=== PATIENT | male | born 1975 ===

== ENCOUNTER 2022-08-06 15:20 | Outpatient (REF) | payer BC, SELFPAY ==
[2022-08-06 16:50] LABS: Abs Immature Grans 0.01 10^3/uL (0.0-0.06); Absolute Basophil Count 0.06 10^3/uL (0.0-0.2); Absolute Eosinophil Count 0.16 10^3/uL (0.0-0.7); Absolute Monocyte Count 0.45 10^3/uL (0.1-0.8); Absolute Neutrophil Count 3.51 10^3/uL (1.2-6.7); Basophils % 1.1; HCT 47.9 % (40.0-50.0); HGB 16.4 g/dL (13.5-17.5); Immature Grans % 0.2; Lymphocytes % 20.8; MCH 31.2 pg (27.0-33.0); MCHC 34.2 % (32.0-36.0); MCV 91 fL (80-95); MPV 11.5 fL (8.0-11.0); Monocytes % 8.5; Neutrophils % 66.4; Platelet Count 224 10^3/uL (130-400); RBC 5.25 10^6/uL (4.36-5.78); RDW 12.3 % (11.8-14.1); RDW-SD 41.3 fL; WBC 5.29 10^3/uL (4.4-10.8)
[2022-08-06 23:11] LABS: ALT 41 U/L (16-63); AST 29 U/L (15-37); Albumin 4.2 g/dL (3.4-5.0); Alkaline Phosphatase 56 U/L (46-116); Anion Gap 15.5 mmol/L (3-11); BUN 12 mg/dL (7-18); Bilirubin, Total 0.6 mg/dL (0.2-1.0); CO2 20.5 mmol/L (21.0-32.0); CREATININE 1.1 mg/dL (0.70-1.30); Calcium 9.3 mg/dL (8.5-10.1); Calculated LDL 117 mg/dL (<100); Chloride 103 mmol/L (98-107); Cholesterol 193 mg/dL (<200); Estimated GFR 84.37 (mL/min/1.73m2); Glucose 73 mg/dL (74-106); HDL Cholesterol 59 mg/dL (40-60); Potassium 4.2 mmol/L (3.5-5.1); Sodium 139 mmol/L (136-145); Total Protein 7.5 g/dL (6.4-8.2); Triglyceride 85 mg/dL (<150)
[2022-08-07 18:17] LABS: PSA, Screening 0.3 ng/mL (<=2.5)
== END 2022-08-06 15:21 | disposition home or self-care (01) ==
LOC: NCHCN 15:20
PROVIDERS: PCP Nurse Practitioner Family; Visit Provider Nurse Practitioner Family
DX: Z00.00 Encounter for general adult medical examination without abnormal findings (principal); Z13.220 Encounter for screening for lipoid disorders; Z13.228 Encounter for screening for other metabolic disorders; Z12.5 Encounter for screening for malignant neoplasm of prostate; Z80.42 Family history of malignant neoplasm of prostate; Z13.0 Encounter for screening for diseases of the blood and blood-forming organs and certain disorders involving the immune mechanism
CPT/HCPCS: 80053; 80061; 84153; 85025

== ENCOUNTER 2023-04-03 16:16 | Outpatient (REF) | payer OTHER, SELFPAY ==
[2023-04-03 17:00] LABS: Abs Immature Grans 0.02 10^3/uL (0.0-0.06); Absolute Basophil Count 0.05 10^3/uL (0.0-0.2); Absolute Eosinophil Count 0.22 10^3/uL (0.0-0.7); Absolute Lymphocyte Count 0.88 10^3/uL (1.2-3.4); Absolute Neutrophil Count 2.88 10^3/uL (1.2-6.7); Basophils % 1.1; Eosinophils % 4.8; HCT 45.6 % (40.0-50.0); HGB 15.8 g/dL (13.5-17.5); Immature Grans % 0.4; Lymphocytes % 19.3; MCH 31.4 pg (27.0-33.0); MCHC 34.6 % (32.0-36.0); MCV 91 fL (80-95); MPV 11.5 fL (8.0-11.0); Neutrophils % 63.4; Platelet Count 187 10^3/uL (130-400); RBC 5.03 10^6/uL (4.36-5.78); RDW 12.3 % (11.8-14.1); RDW-SD 40.6 fL; WBC 4.55 10^3/uL (4.4-10.8)
[2023-04-03 17:57] LABS: ALT 33 U/L (16-63); AST 18 U/L (15-37); Alkaline Phosphatase 51 U/L (46-116); Anion Gap 9.5 mmol/L (3-11); BUN 14 mg/dL (7-18); Bilirubin, Total 0.6 mg/dL (0.2-1.0); CO2 26.5 mmol/L (21.0-32.0); CREATININE 1.1 mg/dL (0.70-1.30); Calcium 9.2 mg/dL (8.5-10.1); Chloride 106 mmol/L (98-107); Estimated GFR 83.84 (mL/min/1.73m2); Glucose 95 mg/dL (74-106); Potassium 4.3 mmol/L (3.5-5.1); Sodium 142 mmol/L (136-145); TSH (W/Ref FT4) 0.98 uIU/mL (0.36-3.74); Total Protein 7.1 g/dL (6.4-8.2); Vitamin B12 556 pg/mL (193-986)
[2023-04-10 09:04] LABS: Testosterone, Free 15.2 ng/dL (4.26-16.4); Testosterone, Total 602 ng/dL (240-950)
== END 2023-04-03 16:17 | disposition home or self-care (01) ==
LOC: NCHCN 16:16
PROVIDERS: PCP Nurse Practitioner Family; Visit Provider Nurse Practitioner Family
DX: R53.83 Other fatigue (principal); Z79.899 Other long term (current) drug therapy
CPT/HCPCS: 80053; 84402; 84403; 82607; 84443; 85025

== ENCOUNTER 2023-05-19 09:07 | Day surgery (SDC) | payer OTHER, SELFPAY ==
--- NOTE | 2023-05-18 11:58 | W.PM.DSUDISC ---
Date of service: 05/19/23 Time of Service: 11:00 Discharge Plan Disposition Patient Disposition: Home Condition: Good Discharge Details Reason For Visit: Screening colonoscopy Attending Provider: Omar Lozano Primary Care Provider: NIKOLAS BUENROSTRO Home Meds and New Rx's Prescriptions: Continued methylphenidate HCl 10 mg tablet 10 mg PO DAILY ocrelizumab 30 mg/mL solution 600 mg IV [id number] Discontinued bisacodyl [Dulcolax (bisacodyl)] 5 mg tablet,delayed release (DR/EC) 5 mg PO ONCE Qty: 4 0RF Rx Instructions: Take per colonoscopy instructions provided by ordering providers office polyethylene glycol 3350 17 gram/dose powder 17 g PO ONCE Qty: 238 0RF Rx Instructions: Take per colonoscopy instructions provided by ordering providers office Discharge Instructions Additional Instructions: Donnell, we were able to complete your colonoscopy today just fine. It was totally normal. I saw no signs of polyps, tumors, or any abnormalities. 1. If tolerated, consume a soft, low fiber diet for 1-2 days. 2. Do not drive, drink alcohol, operate machinery, make critical decisions, or do activities that require coordination or balance for 24 hours. 3. Because air was put into your colon during the procedure, expelling air from your rectum (passing gas or farting) is normal. 4. You may not have a bowel movement for 1-3 days because of the colonoscopy prep. This is normal. 5. Go directly to the emergency room if you notice any of the following: Develop chills (warm to touch), or if you have a thermometer and your temperature is above 101 Difficulty breathing or difficultly swallowing Persistent vomiting Severe abdominal pain, other than gas cramps Severe chest pain Black, tarry stools Any bleeding ? exceeding one tablespoon 6. Call your physician if the site where your intravenous was started becomes red, swollen, painful, and warm to touch. 7. Your physician has reviewed your pre-procedure medications. Please continue to take those medications as previously ordered. You will be given specific information/education regarding any changes to your medications before leaving. Activity:: Activity as Tolerated Diet:: As Tolerated Discharge Orders Discharge Orders: Discharge Order (Routine); Ordered 05/18/23 Ordered By: Omar Lozano DS: Diagnosis Discharge Diagnosis (1) Screening for colon cancer: Status: Acute Asessment and Plan: Negative screening colonoscopy
--- NOTE | 2023-05-18 12:01 | COLE_ITS ---
Date of service: 05/19/23 Time of Service: 11:00 Colonoscopy Report Date of procedure: 05/19/23 Pre-op diagnosis general: Screening colonoscopy Post-op diagnosis procedure note: other (Negative screening colonoscopy) Procedure: Colonoscopy Surgeon: Omar Lozano Anesthesia Type: General:No Airway Estimated blood loss (mL): 0 Pathology: none sent Complications: None Disposition: same day Indications: Donnell is a 48-year-old male who is here for consider screening colonoscopy Prep: Miralax/Dulcolax Procedure Start Time: 10:44 Procedure End Time: 10:55 Retraction Time: 8 Findings: Negative screening colonoscopy Procedure Description: After the induction of monitored anesthetic care, and with the patient in left lateral decubitus position, I began by performing an external anorectal exam.? Perineum and skin were normal, as was the anal verge.? There was no evidence of external hemorrhoids.? Next, I performed a digital rectal exam.? I did not appreciate any abnormal findings.? Next, I advanced a colonoscope into the re ctal vault.? I performed retroflexion.? This was normal.? Using insufflation, I then advanced the colonoscope beyond the rectal folds and into the sigmoid colon before advancing towards the cecum.? The quality of the prep was excellent.? The scope was noted to be in the cecum by identification of the ileocecal valve and appendiceal orifice.? I then began withdrawing the colonoscope using repeated irrigation as necessary for full evaluation of the colonic mucosa. ?Once the scope was withdrawn to the level of the rectum, great care was taken to examine portions of the rectal folds.? I saw no signs of any tumors, polyps, diverticulosis, or any other pathology. Finally, the scope was withdrawn and the patient was brought to the same-day surgery recovery unit as the anesthetic wore off. ?The findings and instructions were shared with the patient prior to discharge.
[2023-05-19 09:21] VITALS: BP 136/79; PULSE 66; RESP 16; TEMP 36.5; O2SAT 98
--- NOTE | 2023-05-19 09:35 | W.ANESPRE ---
General Info Date of Service Date Performed: 05/19/23 Height: 6 ft 1 in Weight: 103.782 kg Body Mass Index (BMI): 30.2 Surgical Procedure: Operation Date: 05/19/23 11:05 Proposed Procedure Side Surgeon p Jessi Lozano MD Meds Allergies and Home Medications Allergies Allergy/AdvReac Type Severity Reaction Status Date / Time No Known Allergies Allergy Verified 05/19/23 09:20 Home Medication Medication Instructions Recorded methylphenidate HCl 10 mg tablet 10 mg PO DAILY 10/03/22 ocrelizumab 30 mg/mL intravenous 600 mg IV [id number] 10/03/22 solution Current Visit Medications: Current Medications Generic Name Dose Route Start Last Admin Trade Name Freq PRN Reason Stop Dose Admin Hyoscyamine Sulfate 0.125 mg 05/18/23 12:02 Hyoscyamine 0.125 Mg Sl/Oral/Chew SL 06/17/23 12:01 DIRECTED PRN Ringer's Solution 1,000 mls @ 80 mls/hr 05/19/23 06:00 IV 06/15/23 23:59 [facility] IV Miscellaneous Supplies 1 each 05/19/23 06:00 Iv Access IV 06/15/23 23:59 DIRECTED TERESA Ondansetron HCl 4 mg 05/18/23 12:02 Ondansetron 4 Mg/2 Ml Vial IVP 06/17/23 12:01 Q4H PRN PRN Nausea / Vomiting Sodium Chloride 0 ml 05/19/23 06:00 Normal Saline Flush 10 Ml Syr IV 06/15/23 23:59 PRN PRN Sodium Chloride 0 ml 05/19/23 06:00 Normal Saline 10 Ml Vial IJ 06/15/23 23:59 DIRECTED PRN Sterile Water 0 ml 05/19/23 06:00 Water,Injection,Sterile 10 Ml Vial IJ 06/15/23 23:59 DIRECTED PRN PFSH Active Problems Active Problems: Problem Status Onset Code Screening for colon cancer Z12.11 Migraine headache G43.909 Osteoarthritis M19.90 Urinary hesitancy R39.11 Lumbar radiculopathy M54.16 Visual loss, bilateral H54.3 Sleep apnea G47.30 Intractable migraine with status migrainosus G43.911 Multiple sclerosis G35 Obesity E66.9 Medical History Medical History Abnormal involuntary movement Family history of malignant neoplasm of prostate Post-void dribbling 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 Surgical History Surgical History History of appendectomy History of repair of ACL Tobacco Smoking/Tobacco Use Status: Never Alcohol Alcohol Intake: never Substance Use Substance use: Never Substance use type: does not use Vital Signs and Lab Results Vital Signs Most Recent Vital Signs in EMR: Most Recent Vital Signs Temp Pulse Resp BP Pulse Ox 36.5 C 66 16 136/79 98 05/19/23 09:21 05/19/23 09:21 05/19/23 09:21 05/19/23 09:21 05/19/23 09:21 Lab Results Blood Type / Crossmatch: No Data to Display Complete Blood Count: No Data to Display Complete Metabolic Panel: No Data to Display Liver Function Panel: No Data to Display Coagulation Panel: No Data to Display Cardiac Panel: No Data to Display Arterial Blood Gas: No Data to Display Venous Blood Gas: No Data to Display Pancreas Panel: No Data to Display Thyroid Panel: No Data to Display Infectious Disease: No Data to Display Blood Cultures: No Data to Display Toxicology Panel: No Data to Display Anesthesia Assessment and Plan Anesthesia History Personal History: No History of Anesthesia Complications Family History: No Family History of Anesthesia Complications Exercise Tolerance Exercise Tolerance: Metabolic Equivalents>4 Pertinent Negatives Pertinent Negatives: No Symptoms of GERD, No Major Cardiovascular Symptoms or Complaints and No Major Pulmonary Symptoms or Complaints Cardiac & Pulmonary Exam Cardiac Exam: Normal S1/S2 Heart Sounds Pulmonary Exam: Clear Bilateral Breath Sounds Implantable Cardiac Device Does patient have a Pacemaker or an ICD?: No Airway Exam Known Difficult Airway: No Mallampati Class: 1 Mouth Opening: Normal (> 3cm) Thyromental Distance: Greater than 3 cm Neck Range of Motion: Full ROM Neck Circumference: Normal Teeth Condition: Normal Dentition ASA Classification ASA Score: ASA 2 Emergency Case?: No NPO Status NPO Status: NPO Clears >2 hours, Solids >8 hours Anesthesia Plan Resuscitation Status: Full Code Anesthesia Technique: General Anesthesia Airway Planned: Natural Airway Monitors Used: Standard Monitors
[2023-05-19 09:36] VITALS: BMI 30.2
[2023-05-19] MEDS: Lactated Ringers 1,000 ML 80 ML IV (09:56)
[2023-05-19 11:00] VITALS: BP 122/69; PULSE 72; RESP 18; TEMP 36.5; O2SAT 98
--- NOTE | 2023-05-19 11:06 | W.ANESPOSTOP ---
Postoperative Evaluation Date, Time and Location Date Performed: 05/19/23 Time Performed: 11:00 Patient Location: Day Surgery Unit Vital Signs Most Recent Imported Vital Signs: Most Recent Vital Signs Temp Pulse Resp BP Pulse Ox 36.5 C 72 18 122/69 98 05/19/23 11:00 05/19/23 11:00 05/19/23 11:00 05/19/23 11:00 05/19/23 11:00 Pain Score Most Recent Pain Score: Most Recent Pain Score Pain Level 0 05/19/23 11:00 Assessment Mental Status: Awake (Alert & Oriented to Patient Baseline) Airway and Respiratory Function: Patent airway with normal (patient baseline) respiratory exam Cardiovascular Function: Hemodynamically Stable Hydration Status: Adequately Hydrated Nausea & Vomiting: No Nausea or Vomiting Pain: Pt. Denies Any Pain Peripheral Nerve Block: Patient did not receive a nerve block
[2023-05-19 11:25] VITALS: BP 126/78; PULSE 58; RESP 18; TEMP 36.5; O2SAT 98
== END 2023-05-19 11:30 | disposition home or self-care (01) ==
PROVIDERS: PCP Nurse Practitioner Family; Visit Provider Surgery
PROC: 0DJD8ZZ Inspection of Lower Intestinal Tract, Via Natural or Artificial Opening Endoscopic (ICD-10-PCS; CPT 45378; principal; 2023-05-19 11:00)
DX: Z12.11 Encounter for screening for malignant neoplasm of colon (principal)
CPT/HCPCS: 45378

== ENCOUNTER → 2023-08-18 00:43 | Outpatient (CLI) | payer OTHER, SELFPAY ==
--- NOTE | 2023-08-18 08:55 | DI.RAD_ITS ---
Exam(s) XR HIP PELVIS ADULT BL EXAM: XR HIP PELVIS ADULT BL CLINICAL HISTORY: BILAT HIP PAIN M25.559. TECHNIQUE: 2D digital imaging was performed of the pelvis and bilateral hips. Four images were obta ined. AP pelvis and lateral views of both hips were obtained. COMPARISON: No exams were available for comparison FINDINGS: BONES: No acute fracture is present. No bony destructive lesion is seen. JOINTS: No dislocation present. There is mild acetabular spurring on the left. The hip joints are ot herwise unremarkable bilaterally. The sacroiliac joints and symphysis pubis are unremarkable. SOFT TISSUE: Phleboliths are seen in the pelvis. IMPRESSION: Mild degenerative changes in the left hip. Unremarkable right hip. DATA REPOSITORY: RADIATION DOSE DELIVERED:
== END ==
PROVIDERS: PCP Nurse Practitioner Family; Visit Provider Family Medicine
DX: M16.12 Unilateral primary osteoarthritis, left hip (principal); M25.551 Pain in right hip
CPT/HCPCS: 73521

== ENCOUNTER 2024-03-24 13:04 | Outpatient (REF) | payer OTHER, SELFPAY ==
[2024-03-24 22:33] LABS: PSA, Screening 0.4 ng/mL (<=2.5)
== END 2024-03-24 13:05 | disposition home or self-care (01) ==
LOC: NCHCN 13:04
PROVIDERS: PCP Family Medicine; Visit Provider Family Medicine
DX: Z13.1 Encounter for screening for diabetes mellitus (principal); Z12.5 Encounter for screening for malignant neoplasm of prostate
CPT/HCPCS: 84153; 83036

== ENCOUNTER 2024-07-07 10:08 | Outpatient (CLI) | payer OTHER, SELFPAY ==
[2024-07-07 10:31] LABS: Abs Immature Grans 0.02 10^3/uL (0.0-0.06); Absolute Basophil Count 0.06 10^3/uL (0.0-0.2); Absolute Eosinophil Count 0.15 10^3/uL (0.0-0.7); Absolute Lymphocyte Count 0.82 10^3/uL (1.2-3.4); Absolute Neutrophil Count 3.19 10^3/uL (1.2-6.7); Basophils % 1.3 %; Eosinophils % 3.2 %; HCT 48.3 % (40.0-50.0); HGB 16.4 g/dL (13.5-17.5); Immature Grans % 0.4 %; Lymphocytes % 17.7 %; MCH 31.8 pg (27.0-33.0); MCV 94 fL (80-95); MPV 10.2 fL (8.0-11.0); Monocytes % 8.6 %; Neutrophils % 68.8 %; Platelet Count 206 10^3/uL (130-400); RBC 5.15 10^6/uL (4.36-5.78); RDW 12.7 % (11.8-14.1); WBC 4.64 10^3/uL (4.4-10.8)
[2024-07-07 10:33] LABS: Bilirubin Negative (Negative); Blood Negative (Negative); Clarity Clear (Clear); Glucose Negative (Negative); Ketones Negative (Negative); Leukocyte Esterase Negative (Negative); Nitrite Negative (Negative); Urobilinogen 0.2 mg/dL (Up to 0.2)
[2024-07-07 10:54] LABS: ALT 35 U/L (16-63); AST 19 U/L (15-37); Albumin 3.9 g/dL (3.4-5.0); Alkaline Phosphatase 52 U/L (46-116); Anion Gap 6.7 mmol/L (3-11); BUN 12 mg/dL (7-18); Bilirubin, Total 0.78 mg/dL (0.2-1.0); CO2 28.3 mmol/L (21.0-32.0); CREATININE 1.2 mg/dL (0.70-1.30); Calcium 9.1 mg/dL (8.5-10.1); Chloride 103 mmol/L (98-107); Estimated GFR 75.06 (mL/min/1.73m2); Glucose 85 mg/dL (74-106); Potassium 3.9 mmol/L (3.5-5.1); Sodium 138 mmol/L (136-145); Total Protein 7.3 g/dL (6.4-8.2)
[2024-07-08 08:38] LABS: IgA 202 mg/dL (85-499); IgG 925 mg/dL (610-1616); IgM 30 mg/dL (35-242)
== END 2024-07-07 10:09 | disposition home or self-care (01) ==
LOC: LBO 10:08
PROVIDERS: PCP Family Medicine; Visit Provider Physician Assistant Surgical
DX: G35 Multiple sclerosis (principal)
CPT/HCPCS: 36415; 80053; 82784; 81003; 85025

== ENCOUNTER 2024-09-22 11:55 | Outpatient (REF) | payer OTHER, SELFPAY ==
--- OUTSIDE RECORDS SUMMARY | 2024-09-22 12:15 | XMS_ITS | Continuity of Care Document ---
Author Organization [facility] Ambulatory [facility] Address [address] [place] [address] Care Team Providers Care Management Trainer Name Role Phone NIKOLAS BUENROSTRO APRN Primary Care Physician [phone] Encounter [facility] FIN NBR [id number] Date(s): 06/10/23 - 06/10/23 [facility] [address] [place] [address], [place] [address] Discharge Disposition: Home Allergies, Adverse Reactions, Alerts No Known Medication Allergies Assessment and Plan Future Appointments Medications Ampyra 10 mg oral tablet, extended release 10 mg = 1 tab, Oral, every 12 hr, # 60 tab, 3 Refill(s), Pharmacy: [facility] #[id number] Start Date: 08/28/22 Stop Date: 12/26/22 Status: Ordered methylphenidate 10 mg/8 hr oral tablet, extended release 28 EA, take 1 tablet by mouth once daily, 0 Refill(s) Start Date: 08/28/22 Status: Ordered ocrelizumab 300 mg/10 mL intravenous solution 600 mg =, IV Piggyback, every 6 mo, 0 Refill(s) Start Date: 08/28/22 Status: Ordered Problem List Condition Confirmation Course Effective Dates Status H ealt Status Informant Unspecified abnormal finding in cerebrospinal fluid Confirmed Active Cervical myelopathy Confirmed Active Chronic fatigue syndrome Confirmed Active Demyelinating changes in brain Confirmed Active 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 Deviated nasal septum Confirmed Active Osteoarthritis of spine with radiculopathy Confirmed Active Hyperreflexia Confirmed Active Hypersomnia Confirmed Active Intention tremor Confirmed Active Lumbar radiculopathy Confirmed Active Obesity Confirmed Active Obstructive sleep apnea Confirmed Active Overweight Confirmed Active Post-void dribbling Confirmed Active Multiple sclerosis, primary progressive Confirmed Active Primary chronic progressive multiple sclerosis Confirmed Active Abnormal findings on diagnostic imaging of other specified body structures Confirmed Active Other migraine, intractable, with status migrainosus Confirmed Active Restless legs syndrome Confirmed Active Thoracic myelopathy Confirmed Active Social History Social History Type Response Tobacco Never tobacco user T obacco Use:. Sex Patient Care team information Care Team Personnel Name: NIKOLAS BUENROSTRO APRN Position: No Access Member Role: Primary Care Physician Address: Address: [address] [address]- [place]
--- OUTSIDE RECORDS SUMMARY | 2024-09-22 12:15 | XMS_ITS | Continuity of Care Document ---
Author Organization [facility] Ambulatory [facility] Address [address] [place] [address] Care Team Providers Care Sand Mill Operator Name Role Phone NIKOLAS BUENROSTRO APRN Primary Care Physician Encounter [facility] NBR [id number] Date(s): 07/07/23 - 07/07/23 [facility] Ambulatory [facility] [address] [place] [address]- Discharge Disposition: Home or Self Care Attending Physician: Shon Ramos MD Referring Physician: NIKOLAS BUENROSTRO APRN Allergies, Adverse Reactions, Alerts No Known Medication Allergies Assessment and Plan Future Appointments Medications Ampyra 10 mg oral tablet, extended release 10 mg = 1 tab, Oral, every 12 hr, # 60 tab, 3 Refill(s), Pharmacy: [facility] #[id number] Start Date: 08/28/22 Stop Date: 12/26/22 Status: Ordered methylphenidate 10 mg/8 hr oral tablet, extended release 28 EA, take 1 tablet by mouth once daily, 0 Refill(s) Start Date: 08/28/22 Status: Ordered ocrelizumab 300 mg/10 mL intravenous solution 600 mg =, IV Piggyback, every 6 mo, 0 Refill(s) Start Date: 08/28/22 Status: Ordered Problem List Condition Confirmation Course Effective Dates Status H ealth Status Informant Unspecified abnormal finding in cerebrospinal [...] Member Role: Primary Care Physician Address: Address: [address] [address]
--- OUTSIDE RECORDS SUMMARY | 2024-09-22 12:15 | XMS_ITS | Continuity of Care Document ---
Author Organization [facility] Address [address] [place] [id number] Care Team Providers Care Assistant Import Manager Name Role Phone NIKOLAS BUENROSTRO APRN Primary Care Physician Encounter [facility] NBR [id number] Date(s): 05/24/24 - 05/24/[address] [address]- Encounter Diagnosis Cellulitis(Discharge Diagnosis) - 05/24/24 Cellulitis of right lower limb(Final) - Obesity, unspecified(Final) - Body mass index [BMI] 30.0-30.9, adult(Final) - Discharge Disposition: Home or Self Care Attending Physician: Walter Mello MD Admitting Physician: Walter Mello MD Allergies, Adverse Reactions, Alerts No Known Medication Allergies Assessment and Plan Extracted from: Title:ED Provider Note Author:KERI Cifuentes Date:05/24/24 Assessment/Plan 1.??Cellulitis??L03.90 ??Patient discharged home with dual antibiotic therapy.?? Close monitoring and RICE therapy encouraged. ??Close PCP follow-up and strict return precautions discussed. Ordered: cephalexin 500 mg oral tablet, 500 mg = 1 tab, Oral, QID, X 10 days, # 40 tab, 0 Refill(s), 06/03/24 15:42:00 EDT, Pharmacy: [email or web address] #[id number], 185, cm, 05/24/24 13:18:00 EDT, Height, 104.3, kg, 05/24/24 13:23:00 EDT, Weight Dosing Discharge Patient, 05/24/24 15:42:00 EDT, Home Independently ?? Patient Education Cellulitis, Adult Follow Up With When Contact Information NIKOLAS BUENROSTRO APRN Within 1 week [facility] [address] [facility] [place] [address]- ?? Additional Instructions: Medications Bactrim DS 800 mg-160 mg oral tablet 1 tab, Oral, every 12 hr, X 10 days, # 20 tab, 0 Refill(s), 06/01/24 8:15:00 PM CDT, [facility]: [facility][id number], 185, cm, 05/22/24 20:40:00 EDT, Height, 104.33, kg, 05/22/24 20:43:00 EDT, Weight Dosing Start Date: 05/22/24 Stop Date: 06/01/24 Status: Ordered cephalexin 500 mg oral tablet 500 mg = 1 tab, Oral, QID, X 10 days, # 40 tab, 0 Refill(s), 06/03/24 2:42:00 PM CDT, Pharmacy: [facility] #[id number], 185, cm, 05/24/24 13:18:00 EDT, Height, 104.3, kg, 05/24/24 13:23:00 EDT, Weight Dosing Start Date: 05/24/24 Stop Date: 06/03/24 Status: Ordered methylphenidate 20 mg/8 hr oral tablet, extended release 20 mg = 1 tab, Oral, Daily, 0 Refill(s) Start Date: 09/25/23 Status: Ordered ocrelizumab 300 mg/10 mL intravenous solution 600 mg =, IV Piggyback, every 6 mo, 0 Refill(s) Start Date: 08/28/22 Status: Ordered Mental Status 05/24/24 Eye Opening Response Sandie Spontaneous ly Best Verbal Response [facility] Oriented Best Motor Response Sandie Obeys comman ds Sandie Coma Score 15 Problem List Condition Confirmation Course Effective Dates [...] syndrome Confirmed Active Thoracic myelopathy Confirmed Active Results Laboratory List Name Date CBC w/ Diff 05/24/24 Comprehensive Metabolic Panel (CMP) 05/24 Automated Diff 05/24/24 Most recent to oldest [Reference Range]: 1 WBC [4.8-10.8 K/mcL] 8.5 K/mcL (05/24/24 1:49 PM) RBC [4.70-6.10 Million/mcL] 4.98 Million /mcL (05/24/24 1:49 PM) Neutro Auto [42.2-75.2 %] 80.0 % *HI* (05/24/24 1:49 PM) Lymph Auto [20.5-51.1 %] 11.1 % *LOW* (05/24/24 1:49 PM) [place] Auto [1.7-9.3 %] 7.2 % (05/24/24 1:49 PM) Basophil Auto [0.0-0.8 %] 0.8 % (05/24/24 1:49 PM) BUN [7-25 mg/dL] 16 mg/dL (05/24/24 1:49 PM) Glucose Level [70-109 mg/dL] 94 mg/dL (05/24/24 1:49 PM) Potassium Level [3.5-5.1 mmol/L] 4.0 mmo l/L (05/24/24 1:49 PM) Baso Absolute [0.0-0.2 K/mcL] 0.1 K/mcL (05/24/24 1:49 PM) MCV [80.0-94.0 fL] 93.1 fL (05/24/24 1:49 PM) AST [13-39 IntlUnit/L] 18 IntlUnit/L (05/24/24 1:49 PM) ALT [7-52 IntlUnit/L] 23 IntlUnit/L (05/24/24 1:49 PM) MCHC [32.0-37.0 g/dL] 34.3 g/dL (05/24/24 1:49 PM) Osmolality [275-295 mOsm/kg] 275 mOsm/kg (05/24/24 1:49 PM) Sodium Level [136-145 mmol/L] 137 mmol/L (05/24/24 1:49 PM) Lymph Absolute [1.2-3.4 K/mcL] 0.9 K/mcL *LOW* (05/24/24 1:49 PM) Hct [42.0-52.0 %] 46.3 % (05/24/24 1:49 PM) Calcium Level [8.6-10.3 mg/dL] 9.2 mg/dL (05/24/24 1:49 PM) [place] Absolute [0.1-0.6 K/mcL] 0.6 K/mcL (05/24/24 1:49 PM) Albumin Level [3.5-5.7 g/dL] 4.2 g/dL (05/24/24 1:49 PM) Protein Total [6.4-8.9 g/dL] 6.7 g/dL (05/24/24 1:49 PM) MCH [27.0-31.0 pg] 31.9 pg *HI* (05/24/24 1:49 PM) Neutro Absolute [1.4-6.5 K/mcL] 6.8 K/mc L *HI* (05/24/24 1:49 PM) Bilirubin Total [0.3-1.0 mg/dL] 0.6 mg/d L (05/24/24 1:49 PM) Hgb [14.0-18.0 g/dL] 15.9 g/dL (05/24/24 1:49 PM) Alk Phos [34-104 IntlUnit/L] 49 IntlUnit /L (05/24/24 1:49 PM) MPV [7.4-10.4 fL] 8.9 fL (05/24/24 1:49 PM) Platelets [130-400 K/mcL] 203 K/mcL (05/24/24 1:49 PM) CO2 [21-31 mmol/L] 28 mmol/L (05/24/24 1:49 PM) Eos Absolute [0.0-0.2 K/mcL] 0.1 K/mcL (05/24/24 1:49 PM) Chloride Level [98-107 mmol/L] 104 mmol/ L (05/24/24 1:49 PM) RDW-CV [11.5-14.5 %] 13.1 % (05/24/24 1:49 PM) A/G Ratio [1.0-2.5 g/dL] 1.7 g/dL (05/24/24 1:49 PM) BUN/Creat Ratio [8.0-20.0] 13.3 (05/24/24 1:49 PM) Globulin [2.3-3.5 g/dL] 2.5 g/dL (05/24/24 1:49 PM) Creatinine Level [0.70-1.30 mg/dL] 1.20 mg/dL (05/24/24 1:49 PM) Anion Gap [3.0-12.0] 5.0 (05/24/24 1:49 PM) Eos, Auto [0.00-3.00 %] 0.90 % (05/24/24 1:49 PM) eGFR CKD-EPI [>=60 mL/min/1.73 m2] 75 mL /min/1.73 m2 (05/24/24 1:49 PM) Radiology Reports * Exam Date Time Procedure Performing Provider Status 05/24/24 3:10 PM US Lower Ext Venous Duplex Right Pedrito Taylor; Luca (Verified) Notes: (US Lower Ext Venous Duplex Right) Reason For Exam: red, swollen right calf/ ? DVT vs bakers cyst US Lower Ext Venous Duplex Right EXAM DESCRIPTION: US Lower Ext Venous Duplex Right 05/24/2024 INDICATION: RED, SWOLLEN RIGHT CALF/ ? DVT VS BAKERS CYST TECHNIQUE: Static images of real-time sonography utilizing B-mode and color Doppler with spectral waveform analysis of the right lower extremity deep venous system was performed. FINDINGS: Right common femoral vein, saphenous junction, femoral vein, popliteal vein as well as visualized posterior tibial and peroneal veins demonstrate normal compressibility, color flow and augmentation with no evidence of DVT. Subcutaneous soft tissue edema in the anterior knee region in the vicinity of patient symptoms. No abnormal fluid collection identified in this region by ultrasound. IMPRESSION: No evidence of right lower extremity DVT. JOB #: [id number] Final Signed by: López Hammer MD Signed (Electronic Signature): 05/24/2024 3:20 pm Vital Signs Most recent to oldest [Reference Range]: 1 Temperature Temporal Artery [36-38 Deg C ] 36.6 Deg C (05/24/24 1:18 PM) Peripheral Pulse Rate [60-100 bpm] 66 bp m (05/24/24 1:18 PM) Respiratory Rate [12-24 br/min] 16 br/mi n (05/24/24 1:18 PM) Blood Pressure [90-140/60-90 mmHg] 136/6 0mmHg (05/24/24 1:18 PM) Mean Arterial Pressure, Cuff [65-140 mmH g] 85 mmHg (05/24/24 1:18 PM) Weight 104.3 kg (05/24/24 1:18 PM) Weight Dosing 104.300 kg (05/24/24 1:18 PM) Height 185 cm (05/24/24 1:18 PM) Body Mass Index 30.47 kg/m2 (05/24/24 1:18 PM) Social History Social History Type Response Tobacco Never tobacco user T obacco Use:. Sex Hospital Discharge Instructions Patient Education 05/24/2024 14:42:56 Cellulitis, Adult Cellulitis, Adult Cellulitis is a skin infection. The infected area is usually warm, red, swollen, and tender. This condition occurs most often in the arms and lower legs. The infection can travel to the muscles, blood, and underlying tissue and become serious. It is very important to get treated for this condition. What are the causes? Cellulitis is caused by bacteria. The bacteria enter through a break in the skin, such as a cut, burn, insect bite, open sore, or crack. What increases the risk? This condition is more likely to occur in people who: ??? Have a weak body defense system (immune system). ??? Have open wounds on the skin, such as cuts, bianchi, bites, and scrapes. Bacteria can enter the body through these open wounds. ??? Are older than 60 years of age. ??? Have diabetes. ??? Have a type of long-lasting (chronic) liver disease (cirrhosis) or kidney disease. ??? Are obese. ??? Have a skin condition such as: ??? Itchy rash (eczema). ??? Slow movement of blood in the veins (venous stasis). ??? Fluid buildup below the skin (edema). ??? Have had radiation therapy. ??? Use IV drugs. What are the signs or symptoms? Symptoms of this condition include: ??? Redness, streaking, or spotting on the skin. ??? Swollen area of the skin. ??? Tenderness or pain when an area of the skin is touched. ??? Warm skin. ??? A fever. ??? Chills. ??? Blisters. How is this diagnosed? This condition is diagnosed based on a medical history and physical exam. You may also have tests, including: ??? Blood tests. ??? Imaging tests. How is this treated? Treatment for this condition may include: ??? Medicines, such as antibiotic medicines or medicines to treat allergies (antihistamines). ??? Supportive care, such as rest and application of cold or warm cloths (compresses) to the skin. ??? Hospital care, if the condition is severe. The infection usually starts to get better within 1???2 days of treatment. Follow these instructions at home: Medicines ??? Take ytvk-vlt-cyvmgre and prescription medicines only as told by your health care provider. ??? If you were prescribed an antibiotic medicine, take it as told by your health care provider. Donot stop taking the antibiotic even if you start to feel better. General instructions ??? Drink enough fluid to keep your urine pale yellow. ??? Do not touch or rub the infected area. ??? Raise (elevate) the infected area above the level of your heart while you are sitting or lying down. ??? Apply warm or cold compresses to the affected area as told by your health care provider. ??? Keep all follow-up visits as told by your health care provider. This is important. These visitslet your health care provider make sure a more serious infection is not developing. Contact a health care provider if: ??? You have a fever. ??? Your symptoms do not begin to improve within 1???2 days of starting treatment. ??? Your bone or joint underneath the infected area becomes painful after the skin has healed. ??? Your infection returns in the same area or another area. ??? You notice a swollen bump in the infected area. ??? You develop new symptoms. ??? You have a general ill feeling (malaise) with muscle aches and pains. Get help right away if: ??? Your symptoms get worse. ??? You feel very sleepy. ??? You develop vomiting or diarrhea that persists. ??? You notice red streaks coming from the infected area. ??? Your red area gets larger or turns dark in color. These symptoms may represent a serious problem that is an emergency. Do not wait to see if the symptoms will go away. Get medical help right away. Call your local emergency services (911 in the [place] Do not drive yourself to the hospital. Summary ??? Cellulitis is a skin infection. This condition occurs most often in the arms and lower legs. ??? Treatment for this condition may include medicines, such as antibiotic medicines or antihistamines. ??? Take dogo-mqv-pvdqqnv and prescription medicines only as told by your health care provider. If you were prescribed an antibiotic medicine, do not stop taking the antibiotic even if you start to feel better. ??? Contact a health care provider if your symptoms do not begin to improve within 1???2 days of starting treatment or your symptoms get worse. ??? Keep all follow-up visits as told by your health care provider. This is important. These visitslet your health care provider make sure that a more serious infection is not developing. This information is not intended to replace advice given to you by your health care provider. Make sure you discuss any questions you have with your health care provider. Document Revised: 07/10/2022 Document Reviewed: 07/11/2022 [employer] Patient Education ?? 2022 [employer]. Follow Up Care 05/24/2024 13:16:02 With:NIKOLAS BUENROSTRO APRN Address: [address] [place] [address]- When:1 week Physician Emergency department Note * KERI Cifuentes: PERFORM Event Display: ED Note Physician Authored Date: [id number] STEPHAN LEAVITT :1975 Age:49 years Sex:Male Visit Date:05/24/2024 Primary Care Physician: NIKOLAS BUENROSTRO APRN Basic Information Time Seen: KERI Cifuentes / 05/24/2024 13:21 Chief Complaint Pt comes to ER with c/o R ??leg swelling. Pt was seen here on 05/22, abx and x ray was done. History Of Present Illness: This is a 49-year-old male here??for concerns of??NS and swelling on the right knee.?? He states a few days ago he??noted a??pimple just distally to the knee where he popped??and then??describes a spreading of the redness around the knee and the calf. ??He was initially seen here??and plain films were obtained showing no acute findings and was started on a Bactrim for suspected??cellulitis. ??He states that there has been no change. ??Says the leg is not??painful per se and he has been ambulating fine on it. ??There was no trauma to it.?? No history of DVT, recent??surgery procedure or travel. ??No shortness of breath chest pain cough or hemoptysis.?? Has been afebrile. Review of Systems: See HPI Physical Exam Vitals & Measurements T:??36.6?C ??(Temporal Artery)?? HR:??66??(Peripheral)?? RR:??16?? BP:??136/60?? SpO2:??100%?? HT:??185??cm?? WT:??104.3??kg?? BMI:??30.47?? O2 Therapy:??Room air?? General: Patient is alert and engaging, appears well. Is in no acute distress. Speaking comfortablyin full sentences.?? Constitutional: No fevers, chills or diaphoresis.?? HEENT: Head normocephalic and atraumatic. Neck supple with FROM. Respiratory: ??No obvious work of breathing, regular rate.?? Cardiovascular: Heart regular rate. Extremities:??There is blanchable??erythema and edema to the right knee and calf. ??Pedal pulse??2+bilaterally. ??Sensation intact.?? No tenderness to palpation along the calf or the knee. ??All compartments palpated and soft. ??Full range of motion of the knee without pain. Integumentary: Skin warm and pink. ??See above Neuro: CN III-XII grossly intact.?? Psychiatric: acting appropriate for age and circumstance. Normal mood without obvious ??affect.?? Medical Decision Making: Patient is a well-appearing 49-year-old male??here for continued redness and swelling of the right??lower extremity. ??Neurovascular exam intact. ??Vitals obtained and reviewed.?? Exam as described above. ??Possibly cellulitis, no leukocytosis present. ??No significant improvement after the Bactrimhowever patient has only been on this for 2 days..?? Unlikely DVT based on patient's??history however will obtain a ultrasound for rule out.?? My suspicion would be for ruptured Goodson's cyst. There fortunately was no evidence of DVT appreciated on the ultrasound. ??There was subcutaneous??edema just anterior to the knee where the patient appreciated??the symptoms.?? Discussed this in depth with the patient. 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 Patient has full range of the knee and there is no pain in the knee itself??so do not suspect a septic??arthritis.?? Patient is adamant that he has not had any recent tick bites. As he is fairly new to the antibiotics will continue on the Bactrim and add on cephalexin.?? Also encouraged RICE. Procedure No Qualifying Data Assessment/Plan 1.??Cellulitis??L03.90 ??Patient discharged home with dual antibiotic therapy.?? Close monitoring and RICE therapy encouraged. ??Close PCP follow-up and strict return precautions discussed. Ordered: cephalexin 500 mg oral tablet, 500 mg = 1 tab, Oral, QID, X 10 days, # 40 tab, 0 Refill(s), 06/03/24 15:42:00 EDT, Pharmacy: [email or web address] #[id number], 185, cm, 05/24/24 13:18:00 EDT, Height, 104.3, kg, 05/24/24 13:23:00 EDT, Weight Dosing Discharge Patient, 05/24/24 15:42:00 EDT, Home Independently ?? Patient Education Cellulitis, Adult Follow Up With When Contact Information NIKOLAS BUENROSTRO APRN Within 1 week [facility] [address] [facility] [place] [address]- Additional Instructions: Medication Reconciliation New Prescription cephalexin (cephalexin 500 mg oral tablet)1 tab Oral (given by mouth) 4 times a day for 10 Days. Refills: 0. ?? Unchanged methylphenidate (methylphenidate 20 mg/8 hr oral tablet, extended release)1 tab Oral (given by mouth) every day. ?? ocrelizumab (ocrelizumab 300 mg/10 mL intravenous solution)600 Milligrams IV Piggyback every 6 months. ?? sulfamethoxazole-trimethoprim (Bactrim DS 800 mg-160 mg oral tablet)1 tab Oral (given by mouth) every 12 hours for 10 Days. Refills: 0. Problem List/Past Medical History Ongoing Abnormal findings on diagnostic imaging of other specified body structures Cervical myelopathy Chronic fatigue syndrome Demyelinating changes in brain Demyelinating disease of central nervous system Deviated nasal septum Hyperreflexia Hypersomnia Intention tremor Lumbar radiculopathy Multiple sclerosis, primary progressive Obesity Obstructive sleep apnea Osteoarthritis of spine with radiculopathy Other migraine, intractable, with status migrainosus Overweight Post-void dribbling Primary chronic progressive multiple sclerosis Restless legs syndrome Thoracic myelopathy Unspecified abnormal finding in cerebrospinal fluid Historical No qualifying data Allergies No Known Medication Allergies Social History Alcohol Never Electronic Cigarette/Vaping Electronic Cigarette Use: Never. Substance Use Current, Marijuana, 1-2 times per month Tobacco Never tobacco user Tobacco Use:. Diagnostic Results US Lower Ext Venous Duplex Right 05/24/2024 15:23 EDT US Lower Ext Venous Duplex Right ?? 05/24/24 15:20:34 EXAM DESCRIPTION: US Lower Ext Venous Duplex Right ?? 05/24/2024 ?? INDICATION: RED, SWOLLEN RIGHT CALF/ ? DVT VS BAKERS CYST ?? TECHNIQUE: Static images of real-time sonography utilizing B-mode and color Doppler with spectral waveform analysis of the right lower extremity deep venous system was performed. ?? FINDINGS: Right common femoral vein, saphenous junction, femoral vein, popliteal vein as well as visualized posterior tibial and peroneal veins demonstrate normal compressibility, color flow and augmentation with no evidence of DVT. ?? Subcutaneous soft tissue edema in the anterior knee region in the vicinity of patient symptoms. No abnormal fluid collection identified in this region by ultrasound. ?? IMPRESSION: No evidence of right lower extremity DVT. ? JOB #: [id number] Electronically Signed By: ?? Signed By: López Hammer MD Lab Results CBC and Differential?? LATEST RESULTS?? WBC?? 05/24/24 13:49?? 8.5?? RBC?? 05/24/24 13:49?? 4.98?? Hgb?? 05/24/24 13:49?? 15.9?? Hct?? 05/24/24 13:49?? 46.3?? MCV?? 05/24/24 13:49?? 93.1?? MCH?? 05/24/24 13:49?? 31.9 ??High?? MCHC?? 05/24/24 13:49?? 34.3?? RDW-CV?? 05/24/24 13:49?? 13.1?? Platelets?? 05/24/24 13:49?? 203?? MPV?? 05/24/24 13:49?? 8.9?? Neutro Auto?? 05/24/24 13:49?? 80.0 ??High?? Lymph Auto?? 05/24/24 13:49?? 11.1 ??Low?? [place] Auto?? 05/24/24 13:49?? 7.2?? Eos, Auto?? 05/24/24 13:49?? 0.90?? Basophil Auto?? 05/24/24 13:49?? 0.8?? Neutro Absolute?? 05/24/24 13:49?? 6.8 ??High?? Lymph Absolute?? 05/24/24 13:49?? 0.9 ??Low?? [place] Absolute?? 05/24/24 13:49?? 0.6?? Eos Absolute?? 05/24/24 13:49?? 0.1?? Baso Absolute?? 05/24/24 13:49?? 0.1? Routine Chemistry?? LATEST RESULTS?? Sodium Level?? 05/24/24 13:49?? 137?? Potassium Level?? 05/24/24 13:49?? 4.0?? Chloride Level?? 05/24/24 13:49?? 104?? CO2?? 05/24/24 13:49?? 28?? Alk Phos?? 05/24/24 13:49?? 49?? AST?? 05/24/24 13:49?? 18?? ALT?? 05/24/24 13:49?? 23?? BUN?? 05/24/24 13:49?? 16?? Glucose Level?? 05/24/24 13:49?? 94?? Creatinine Level?? 05/24/24 13:49?? 1.20?? BUN/Creat Ratio?? 05/24/24 13:49?? 13.3?? eGFR CKD-EPI?? 05/24/24 13:49?? 75?? Calcium Level?? 05/24/24 13:49?? 9.2?? Protein Total?? 05/24/24 13:49?? 6.7?? Albumin Level?? 05/24/24 13:49?? 4.2?? Globulin?? 05/24/24 13:49?? 2.5?? A/G Ratio?? 05/24/24 13:49?? 1.7?? Bilirubin Total?? 05/24/24 13:49?? 0.6?? Anion Gap?? 05/24/24 13:49?? 5.0?? Osmolality?? 05/24/24 13:49?? 275? Electronically Signed on 05/24/2024 15:48 EDT KERI Cifuentes Emergency department Discharge instructions * KERI Cifuentes: PERFORM Event Display: ED Discharge Information Authored Date: [id number] STEPHAN LEAVITT :1975 Age:49 years Sex:Male Visit Date:05/24/2024 Primary Care Physician: NIKOLAS BUENROSTRO APRN Discharge Instructions We would like to thank you for allowing us to assist you with your healthcare needs. The following includes patient education materials and information regarding your injury/illness. Diagnosis from Today's Visit Cellulitis Discharge Vitals Temperature??(Temporal Artery) 97.9 ??F (36.6 ??C) Heart Rate??(Peripheral) 66 Respiratory Rate?? 16 Blood Pressure?? 136/60?? SpO2?? 100% Height?? 72.83 in (185 cm) Weight?? 229.98 lb (104.3 kg) BMI?? 30.47 Allergies No Known Medication Allergies What to Do Next Instructions from Your Care Team You were seen here for cellulitis. ??Fortunately labs were reassuring and there was??no evidence ofa DVT seen on the ultrasound.?? Please continue with the Bactrim and I have added an additional??antibiotic Keflex to take??along with this. ??Please take daily pictures of the leg to track any progression??and make sure you are keeping the leg elevated rested and especially icing on the knee for the next few days.?? Be seen again if you experience any worsening of the rash streaking up the leg fevers??or difficulty ranging the knee. You Need to Schedule the Following Appointments Follow Up with??NIKOLAS BUENROSTRO APRN When:??Within 1 week Where: [address] [place] [place] [address]- Upcoming Scheduled Appointments Friday 8:30 AM EDT ?? Where: [facility] Infusion Care Status: Confirmed You were treated today on an emergency basis; it may be schaffer to contact your primary care provider to notify them of your visit today. You may have been referred to your regular doctor or a specialist, please follow up as instructed. If your condition worsens or you can't get in to see the doctor, contact the Emergency Department. Medications What How Much When Why Instructions Next Dose New cephalexin (cephalexin 500 mg oral tablet) 1 tab Oral (given by mouth) 4 times a day Cellulitis Duration: 10 Days Pickup at [email or web address] #[id number] Unchanged methylphenidate (methylphenidate 20 mg/ 8 hr oral tablet, extended release) 1 tab Oral (given by mouth) Every day Unchanged ocrelizumab (ocrelizumab 300 mg/ 10 mL intravenous solution) 600 Milligrams IV Piggyback Every 6 months Unchanged sulfamethoxazole-trimethoprim (Bactrim DS 800 mg-160 mg oral tablet) 1 tab Oral (given by mouth) Every 12 hours Lower extremity edema Duration: 10 Days Pharmacy Information [facility] #[id number]: [address], [place] [id number] [phone] Education Materials Cellulitis, Adult Cellulitis is a skin infection. The infected area is usually warm, red, swollen, and tender. This condition occurs most often in the arms and lower legs. The infection can travel to the muscles, blood, and underlying tissue and become serious. It is very important to get treated for this condition. What are the causes? Cellulitis is caused by bacteria. The bacteria enter through a break in the skin, such as a cut, burn, insect bite, open sore, or crack. What increases the risk? This condition is more likely to occur in people who: ? Have a weak body defense system (immune system). ? Have open wounds on the skin, such as cuts, bianchi, bites, and scrapes. Bacteria can enter the body through these open wounds. ? Are older than 60 years of age. ? Have diabetes. ? Have a type of long-lasting (chronic) liver disease (cirrhosis) or kidney disease. ? Are obese. ? Have a skin condition such as: ? Itchy rash (eczema). ? Slow movement of blood in the veins (venous stasis). ? Fluid buildup below the skin (edema). ? Have had radiation therapy. ? Use IV drugs. What are the signs or symptoms? Symptoms of this condition include: ? Redness, streaking, or spotting on the skin. ? Swollen area of the skin. ? Tenderness or pain when an area of the skin is touched. ? Warm skin. ? A fever. ? Chills. ? Blisters. How is this diagnosed? This condition is diagnosed based on a medical history and physical exam. You may also have tests, including: ? Blood tests. ? Imaging tests. How is this treated? Treatment for this condition may include: ? Medicines, such as antibiotic medicines or medicines to treat allergies (antihistamines). ? Supportive care, such as rest and application of cold or warm cloths (compresses) to the skin. ? Hospital care, if the condition is severe. The infection usually starts to get better within 1???2 days of treatment. Follow these instructions at home: Medicines ? Take lxja-osk-txfcmxz and prescription medicines only as told by your health care provider. ? If you were prescribed an antibiotic medicine, take it as told by your health care provider. Do notstop taking the antibiotic even if you start to feel better. General instructions ? Drink enough fluid to keep your urine pale yellow. ? Do not touch or rub the infected area. ? Raise (elevate) the infected area above the level of your heart while you are sitting or lying down. ? Apply warm or cold compresses to the affected area as told by your health care provider. ? Keep all follow-up visits as told by your health care provider. This is important. These visits letyour health care provider make sure a more serious infection is not developing. Contact a health care provider if: ? You have a fever. ? Your symptoms do not begin to improve within 1???2 days of starting treatment. ? Your bone or joint underneath the infected area becomes painful after the skin has healed. ? Your infection returns in the same area or another area. ? You notice a swollen bump in the infected area. ? You develop new symptoms. ? You have a general ill feeling (malaise) with muscle aches and pains. Get help right away if: ? Your symptoms get worse. ? You feel very sleepy. ? You develop vomiting or diarrhea that persists. ? You notice red streaks coming from the infected area. ? Your red area gets larger or turns dark in color. These symptoms may represent a serious problem that is an emergency. Do not wait to see if the symptoms will go away. Get medical help right away. Call your local emergency services (911 in the [place] Do not drive yourself to the hospital. Summary ? Cellulitis is a skin infection. This condition occurs most often in the arms and lower legs. ? Treatment for this condition may include medicines, such as antibiotic medicines or antihistamines. ? Take jyib-jhb-hrwczxv and prescription medicines only as told by your health care provider. If you were prescribed an antibiotic medicine, do not stop taking the antibiotic even if you start to feel better. ? Contact a health care provider if your symptoms do not begin to improve within 1???2 days of starting treatment or your symptoms get worse. ? Keep all follow-up visits as told by your health care provider. This is important. These visits letyour health care provider make sure that a more serious infection is not developing. This information is not intended to replace advice given to you by your health care provider. Make sure you discuss any questions you have with your health care provider. Document Revised: 07/10/2022 Document Reviewed: 07/11/2022 Elsevier Patient Education ?? 2022 [employer] Tests Performed Radiology US Lower Ext Venous Duplex Right 05/24/2024 15:23 EDT Lab Test Name Test Result Date/Time WBC 8.5 K/mcL 05/24/2024 13:49 EDT RBC 4.98 Million/mcL 05/24/2024 13:49 EDT Hgb 15.9 g/dL 05/24/2024 13:49 EDT Hct 46.3 % 05/24/2024 13:49 EDT MCV 93.1 fL 05/24/2024 13:49 EDT MCH 31.9 pg 05/24/2024 13:49 EDT MCHC 34.3 g/dL 05/24/2024 13:49 EDT RDW-CV 13.1 % 05/24/2024 13:49 EDT Platelets 203 K/mcL 05/24/2024 13:49 EDT MPV 8.9 fL 05/24/2024 13:49 EDT Neutro Auto 80.0 % 05/24/2024 13:49 EDT Lymph Auto 11.1 % 05/24/2024 13:49 EDT [place] Auto 7.2 % 05/24/2024 13:49 EDT Eos, Auto 0.90 % 05/24/2024 13:49 EDT Basophil Auto 0.8 % 05/24/2024 13:49 EDT Neutro Absolute 6.8 K/mcL 05/24/2024 13:49 EDT Lymph Absolute 0.9 K/mcL 05/24/2024 13:49 EDT [place] Absolute 0.6 K/mcL 05/24/2024 13:49 EDT Eos Absolute 0.1 K/mcL 05/24/2024 13:49 EDT Baso Absolute 0.1 K/mcL 05/24/2024 13:49 EDT Sodium Level 137 mmol/L 05/24/2024 13:49 EDT Potassium Level 4.0 mmol/L 05/24/2024 13:49 EDT Chloride Level 104 mmol/L 05/24/2024 13:49 EDT CO2 28 mmol/L 05/24/2024 13:49 EDT Alk Phos 49 IntlUnit/L 05/24/2024 13:49 EDT AST 18 IntlUnit/L 05/24/2024 13:49 EDT ALT 23 IntlUnit/L 05/24/2024 13:49 EDT BUN 16 mg/dL 05/24/2024 13:49 EDT Glucose Level 94 mg/dL 05/24/2024 13:49 EDT Creatinine Level 1.20 mg/dL 05/24/2024 13:49 EDT BUN/Creat Ratio 13.3 05/24/2024 13:49 EDT eGFR CKD-EPI 75 mL/min/1.73 m2 05/24/2024 13:49 EDT Calcium Level 9.2 mg/dL 05/24/2024 13:49 EDT Protein Total 6.7 g/dL 05/24/2024 13:49 EDT Albumin Level 4.2 g/dL 05/24/2024 13:49 EDT Globulin 2.5 g/dL 05/24/2024 13:49 EDT A/G Ratio 1.7 g/dL 05/24/2024 13:49 EDT Bilirubin Total 0.6 mg/dL 05/24/2024 13:49 EDT Anion Gap 5.0 05/24/2024 13:49 EDT Osmolality 275 mOsm/kg 05/24/2024 13:49 EDT Patient/[employer]ail [employer] Signature Patient Name:STEPHAN LEAVITT Meche I have received this information and my questions have been answered. 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
--- OUTSIDE RECORDS SUMMARY | 2024-09-22 12:15 | XMS_ITS | Continuity of Care Document ---
Author Organization [facility] Address [address] [place] [address] Care Team Providers Care Aegis Console Operator Track Name Role Phone NIKOLAS BUENROSTRO APRN Primary Care Physician Encounter [facility] NBR [id number] Date(s): 10/03/23 - 02/23/24 [facility] [address] [place] [address]- [place] Encounter Diagnosis Spondylosis without myelopathy or radiculopathy, lumbar region(Final) - Discharge Disposition: Home Attending Physician: Gena Ramirez, PT Admitting Physician: SOPHIE NINA PA-C Referring Physician: SOPHIE NINA PA-C Allergies, Adverse Reactions, Alerts No Known Medication Allergies Assessment and Plan Future Appointments Functional Status 10/03/23 Prior ADL Status Independent Prior Mobility Status Independent Prior Instrumental ADL Level Independent Prior Cognitive-Communication Skills Ind ependent 10/03/23 Patient's Responsibilities Rehab Caregiv er for pet, Community mobility, [employer], 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 Sex Physical therapy Note * Event Display: Physical Therapy Rehab Note Patient Care team information Care Team Personnel Name: NIKOLAS BUENROSTRO APRN Position: No Access Member Role: Primary Care Physician Address: Address: [id number] [place] [address] Care Team Related Persons Name: MIROSLAVA LEAVITT Address: Home [address] [place] [phone] [facility]
--- OUTSIDE RECORDS SUMMARY | 2024-09-22 12:15 | XMS_ITS | Continuity of Care Document ---
Author Organization [facility] Address [address] [place] [address] Care Team Providers Care Surface Ship Usw Supervisor Name Role Phone NIKOLAS BUENROSTRO APRN Primary Care Physician Encounter [facility] NBR [id number] Date(s): 07/07/23 - 07/07/23 [facility] [address] [place] [address]- Discharge Disposition: Home Allergies, Adverse Reactions, Alerts No Known Medication Allergies Assessment and Plan Future Appointments Future Scheduled Tests Radiology* MRI Brain w/ + w/o Contrast 07/07/23 * MRI Spine Cervical w/ + w/o Contrast 07/07/23 * MRI Spine Lumbar w/o Contrast 07/07/23 * MRI Spine Thoracic w/ + w/o Contrast 07/07/23 Medications ocrelizumab 300 mg/10 mL intravenous solution 600 [...] Member Role: Primary Care Physician Address: Address: [address] [facility], [place] [address] [place]
--- OUTSIDE RECORDS SUMMARY | 2024-09-22 12:15 | XMS_ITS | Continuity of Care Document ---
Author Organization [facility] Address [address] [place] [id number] Care Team Providers Care Type Disk Quality Control Supervisor Name Role Phone NIKOLAS BUENROSTRO APRN Primary Care Physician Encounter [facility] NBR [id number] Date(s): 07/07/23 - 07/07/[address] [address] Encounter Diagnosis Multiple sclerosis(Final) - Discharge Disposition: Home or Self Care Attending Physician: Shon Ramos MD Admitting Physician: Shon Ramos MD Referring Physician: Shon Ramos MD Allergies, Adverse Reactions, Alerts No Known [...] syndrome Confirmed Active Thoracic myelopathy Confirmed Active Vital Signs Most recent to oldest [Reference Range]: 1 Temperature Temporal Artery [36-38 Deg C ] 36.9 Deg C (07/07/23 9:53 AM) Peripheral Pulse Rate [60-100 bpm] 45 bp m *LOW* (07/07/23 9:53 AM) Respiratory Rate [12-24 br/min] 18 br/mi n (07/07/23 9:53 AM) Blood Pressure [90-140/60-90 mmHg] 124/7 1mmHg (07/07/23 9:53 AM) Social History Social History Type Response Tobacco Never tobacco user T obacco Use:. Sex Patient Care team information Care Team Personnel Name: NIKOLAS BUENROSTRO APRN Position: No Access Member Role: Primary Care Physician Address: Address: [address] [address]- [place]
--- OUTSIDE RECORDS SUMMARY | 2024-09-22 12:15 | XMS_ITS | Continuity of Care Document ---
Author Organization [facility] Address [address] [place] [address] Encounter Date(s): 04/20/24 - 04/20/[address] [address]- [place] Encounter Diagnosis MS (multiple sclerosis)(Discharge Diagnosis) - 04/20/24 Discharge Disposition: Home or Self Care Attending Physician: Palma Haider PA-C Allergies, Adverse Reactions, Alerts No Known Allergies Assessment and Plan Future Appointments Appointment Date:07/16/2024 09:30:00 AM Scheduled Provider:Palma Haider PA-C Location:[facility] Appointment Type:SOHAIL ROV Routine Office Visit Medications Ocrevus 300 mg/10 mL intravenous solution 600 mg, IV, Every 6 months Start Date: 03/19/24 Status: Ordered Vitamin B12 Methylcobalamin 5000 mcg sublingual tablet 1 tab, Sublingual, Daily, with food Start Date: 03/19/24 Status: Ordered zinc (as gluconate) 30 mg oral tablet 1 tab, Oral, Daily Start Date: 03/19/24 Status: Ordered Problem List Condition Confirmation Course Effective Dates Status H ealth Status Informant Arthritis Confirmed Active Cervical myelopathy Confirmed Active Chronic fatigue syndrome Confirmed Active Degenerative disc disease, lumbar Confirmed Active Deviated nasal septum Confirmed Active Hyperreflexia Confirmed Active Hypersomnia Confirmed Active Low back pain Confirmed Active Lumbar radiculopathy Confirmed Active Lumbar spondylosis Confirmed Active Migraine Confirmed Active Multiple sclerosis Confirmed Active Obstructive sleep apnea Confirmed Active Restless leg syndrome Confirmed Active Thoracic myelopathy Confirmed Active Vital Signs Most recent to oldest [Reference Range]: 1 Height/Length [124.5-243.8 cm] 185.42 cm (04/20/24 2:04 PM) Weight Measured 106.59 kg (04/20/24 2:04 PM) Peripheral Pulse Rate [50-100 bpm] 61 bp m (04/20/24 2:04 PM) Blood Pressure [90-140/60-90 mmHg] 134/7 3mmHg (04/20/24 2:04 PM) Blood Pressure Location Left arm (04/20/24 2:04 PM) Cuff Type Adult XL (04/20/24 2:04 PM) Social History Social History Type Response Smoking Status Never smoker entered on: 04/20/24 Sex Patient Care team information Care Team Related Persons Name: MIROSLAVA LEAVITT
--- OUTSIDE RECORDS SUMMARY | 2024-09-22 12:15 | XMS_ITS | Continuity of Care Document ---
Author Organization [facility] Address [address] [place] [id number] Care Team Providers Care Planer Off Bearer Name Role Phone NIKOLAS BUENROSTRO APRN Primary Care Physician [phone] Encounter [facility] NB [id number] Date(s): 05/22/24 - 05/22/[address] [phone] Encounter Diagnosis Lower extremity edema(Discharge Diagnosis) - 05/22/24 Cellulitis(Discharge Diagnosis) - 05/22/24 Discharge Disposition: Home or Self Care Attending Physician: Errol Delgado DO Admitting Physician: Errol Delgado DO Allergies, Adverse Reactions, Alerts No Known Medication Allergies Assessment and Plan Future Appointments Medications Bactrim DS 800 mg-160 mg oral tablet 1 tab, Oral, every 12 hr, X 10 days, # 20 tab, 0 Refill(s), 06/01/24 8:15:00 PM CDT, Pharmacy: [id number], 185, cm, 05/22/24 20:40:00 EDT, Height, 104.33, kg, 05/22/24 20:43:00 EDT, Weight Dosing Start Date: 05/22/24 Stop Date: 06/01/24 Status: Ordered methylphenidate 20 mg/8 hr oral tablet, extended release 20 mg = 1 tab, Oral, Daily, 0 Refill(s) Start Date: 09/25/23 Status: Ordered ocrelizumab 300 mg/10 mL intravenous solution 600 mg =, IV Piggyback, every 6 mo, 0 Refill(s) Start Date: 08/28/22 Status: Ordered Mental Status 05/22/24 Eye Opening Response [place] Spontaneous ly Best Verbal Response [place] Oriented Best Motor Response [place] Obeys comman ds [place] Coma Score 15 Problem List Condition Confirmation [...] Confirmed Active Thoracic myelopathy Confirmed Active Results Radiology Reports * Exam Date Time Procedure Performing Provider Status 05/22/24 9:04 PM XR Knee 3 Views Right Cassandra Mustafa (Verified) Notes: (XR Knee 3 Views Right) Reason For Exam: right knee pain XR Knee 3 Views Right PROCEDURE INFORMATION: Exam: XR Right Knee Exam date and time: 05/22/2024 9:08 PM Age: 49 years old Clinical indication: Pain; Knee; Right; Additional info: Right knee pain TECHNIQUE: Imaging protocol: Radiologic exam of the right knee. Views: 3 views. COMPARISON: No relevant prior studies available. FINDINGS: Bones/joints: No acute fracture. Patient is status post ACL repair. Normal alignment.. No joint space collection. Soft tissues: Normal. IMPRESSION: No acute findings. THIS DOCUMENT HAS BEEN ELECTRONICALLY SIGNED BY AMY SHABAZZ MD on 05/22/2024 10:27 PM Final Signed by: Amy Shabazz MD Signed (Electronic Signature): 05/22/2024 10:27 pm Vital Signs Most recent to oldest [Reference Range]: 1 Temperature Tympanic [36.6-38.1 Deg C] 3 6.7 Deg C (05/22/24 8:40 PM) Heart Rate Monitored [60-100 bpm] 63 bpm (05/22/24 8:40 PM) Respiratory Rate [12-24 br/min] 16 br/mi n (05/22/24 8:40 PM) Blood Pressure [90-140/60-90 mmHg] 142/8 6mmHg *HI* (05/22/24 8:40 PM) Mean Arterial Pressure, Cuff [65-140 mmH g] 105 mmHg (05/22/24 8:40 PM) Weight 104.33 kg (05/22/24 8:40 PM) Weight Dosing 104.330 kg (05/22/24 8:40 PM) Height 185 cm (05/22/24 8:40 PM) Body Mass Index 30.48 kg/m2 (05/22/24 8:40 PM) Social History Social History Type Response Tobacco Never tobacco user T obacco Use:. Sex Hospital Discharge Instructions Patient Education 05/22/2024 20:16:45 Edema Edema Edema is an abnormal buildup of fluids in the body tissues and under the skin. Swelling of the legs, feet, and ankles is a common symptom that becomes more likely as you get older. Swelling is also common in looser tissues, such as around the eyes. Pressing on the area may make a temporary dent in your skin (pitting edema). This fluid may also accumulate in your lungs (pulmonary edema). There are many possible causes of edema. Eating too much salt (sodium) and being on your feet or sitting for a long time can cause edema in your legs, feet, and ankles. Common causes of edema include: ??? Certain medical conditions, such as heart failure, liver or kidney disease, and cancer. ??? Weak leg blood vessels. ??? An injury. ??? . ??? Medicines. ??? Being obese. ??? Low protein levels in the blood. Hot weather may make edema worse. Edema is usually painless. Your skin may look swollen or shiny. Follow these instructions at home: Medicines ??? Take admu-avz-wbsrtgw and prescription medicines only as told by your health care provider. ??? Your health care provider may prescribe a medicine to help your body get rid of extra water (diuretic). Take this medicine if you are told to take it. Eating and drinking ??? Eat a low-salt (low-sodium) diet to reduce fluid as told by your health care provider. Sometimes, eating less salt may reduce swelling. ??? Depending on the cause of your swelling, you may need to limit how much fluid you drink (fluid restriction). General instructions ??? Raise (elevate) the injured area above the level of your heart while you are sitting or lying down. ??? Do not sit still or stand for long periods of time. ??? Do not wear tight clothing. Do not wear garters on your upper legs. ??? Exercise your legs to get your circulation going. This helps to move the fluid back into your blood vessels, and it may help the swelling go down. ??? Wear compression stockings as told by your health care provider. These stockings help to prevent blood clots and reduce swelling in your legs. It is important that these are the correct size. These stockings should be prescribed by your health care provider to prevent possible injuries. ??? If elastic bandages or wraps are recommended, use them as told by your health care provider. Contact a health care provider if: ??? Your edema does not get better with treatment. ??? You have heart, liver, or kidney disease and have symptoms of edema. ??? You have sudden and unexplained weight gain. Get help right away if: ??? You develop shortness of breath or chest pain. ??? You cannot breathe when you lie down. ??? You develop pain, redness, or warmth in the swollen areas. ??? You have heart, liver, or kidney disease and suddenly get edema. ??? You have a fever and your symptoms suddenly get worse. These symptoms may be an emergency. Get help right away. Call 911. ??? Do not wait to see if the symptoms will go away. ??? Do not drive yourself to the hospital. Summary ??? Edema is an abnormal buildup of fluids in the body tissues and under the skin. ??? Eating too much salt (sodium)and being on your feet or sitting for a long time can cause edema in your legs, feet, and ankles. ??? Raise (elevate) the injured area above the level of your heart while you are sitting or lying down. ??? Follow your health care provider's instructions about diet and how much fluid you can drink. This information is not intended to replace advice given to you by your health care provider. Make sure you discuss any questions you have with your health care provider. Document Revised: 06/03/2022 Document Reviewed: 06/03/2022 [employer] Patient Education ?? 2022 Moxie Jean. 05/22/2024 20:16:42 Cellulitis, Adult Cellulitis, Adult Cellulitis is a [...] these instructions at home: Medicines ??? Take fgbn-gxm-kggkxxy and prescription medicines only as told by [...] as antibiotic medicines or antihistamines. ??? Take cksa-ffw-ysyiclm and prescription medicines only as told by [...] provider. Document Revised: 07/10/2022 Document Reviewed: 07/11/2022 [employer] [facility] Patient Education ?? 2022 Moxie Jean. Follow Up Care 05/22/2024 20:31:43 With:Tylenol/Motrin for Pain/Fever Relief Address: When: Unknown Comments:Utilize Motrin 400-600 mg??every 6-8 hours as needed discomfort, Tylenol 1000 mg every 8 hours??as needed With:Follow-up with your primary care Address: When:1 week Comments:Follow-up with your primary care as needed, they will be able to reevaluate if necessaryReturn to ED if concerns Emergency department Discharge instructions * KERI Naqvi: PERFORM Event Display: ED Discharge Information Authored Date: [id number] STEPHAN LEAVITT :1975 Age:49 years Sex:Male Visit Date:05/22/2024 Primary Care Physician: NIKOLAS BUENROSTRO APRN Discharge Instructions We would like to thank you for allowing us to assist you with your healthcare needs. The following includes patient education materials and information regarding your injury/illness. Diagnosis from Today's Visit Lower extremity edema Cellulitis Discharge Vitals Temperature??(Tympanic) 98.1 ??F (36.7 ??C) Heart Rate??(Monitored) 63 Respiratory Rate?? 16 Blood Pressure?? 142/86?? SpO2?? 99% Height?? 72.83 in (185 cm) Weight?? 230.05 lb (104.33 kg) BMI?? 30.48 Allergies No Known Medication Allergies What to Do Next Instructions from Your Care Team Take medication as prescribed We will??add an Deonte wrap??for some compression to??relieve some of the fluid wear as desired Tylenol and Motrin Follow-up with your primary care You Need to Schedule the Following Appointments Follow Up with??Tylenol/Motrin for Pain/Fever Relief Why: Utilize Motrin 400-600 mg??every 6-8 hours as needed discomfort, Tylenol 1000 mg every 8 hours??as needed Follow Up with??Follow-up with your primary care When:??Within 1 week Why: Follow-up with your primary care as needed, they will be able to reevaluate if necessary Return to ED if concerns Upcoming Scheduled Appointments Friday 8:30 AM EDT ?? [facility]: [facility] Infusion Care Status: Confirmed You were treated [...] Much When Why Instructions Next Dose New sulfamethoxazole-trimethoprim (Bactrim DS 800 mg-160 mg oral tablet) 1 tab Oral (given by mouth) Every 12 hours Lower extremity edema Duration: 10 Days Pickup at [facility] #[id number] Unchanged methylphenidate (methylphenidate 20 mg/ 8 hr oral tablet, extended release) 1 tab Oral (given by mouth) Every day Unchanged ocrelizumab (ocrelizumab 300 mg/ 10 mL intravenous solution) 600 Milligrams IV Piggyback Every 6 months Pharmacy Information [facility] #[id number]: [address], [place] [phone] [employer] Edema Edema is an abnormal buildup of fluids in the body tissues and under the skin. Swelling of the legs, feet, and ankles is a common symptom that becomes more likely as you get older. Swelling is also common in looser tissues, such as around the eyes. Pressing on the area may make a temporary dent in your skin (pitting edema). This fluid may also accumulate in your lungs (pulmonary edema). There are many possible causes of edema. Eating too much salt (sodium) and being on your feet or sitting for a long time can cause edema in your legs, feet, and ankles. Common causes of edema include: ? Certain medical conditions, such as heart failure, liver or kidney disease, and cancer. ? Weak leg blood vessels. ? An injury. ? . ? Medicines. ? Being obese. ? Low protein levels in the blood. Hot weather may make edema worse. Edema is usually painless. Your skin may look swollen or shiny. Follow these instructions at home: Medicines ? Take xvzg-ahj-qnrorlo and prescription medicines only as told by your health care provider. ? Your health care provider may prescribe a medicine to help your body get rid of extra water (diuretic). Take this medicine if you are told to take it. Eating and drinking ? Eat a low-salt (low-sodium) diet to reduce fluid as told by your health care provider. Sometimes, eating less salt may reduce swelling. ? Depending on the cause of your swelling, you may need to limit how much fluid you drink (fluid restriction). General instructions ? Raise (elevate) the injured area above the level of your heart while you are sitting or lying down. ? Do not sit still or stand for long periods of time. ? Do not wear tight clothing. Do not wear garters on your upper legs. ? Exercise your legs to get your circulation going. This helps to move the fluid back into your bloodvessels, and it may help the swelling go down. ? Wear compression stockings as told by your health care provider. These stockings help to prevent blood clots and reduce swelling in your legs. It is important that these are the correct size. These stockings should be prescribed by your health care provider to prevent possible injuries. ? If elastic bandages or wraps are recommended, use them as told by your health care provider. Contact a health care provider if: ? Your edema does not get better with treatment. ? You have heart, liver, or kidney disease and have symptoms of edema. ? You have sudden and unexplained weight gain. Get help right away if: ? You develop shortness of breath or chest pain. ? You cannot breathe when you lie down. ? You develop pain, redness, or warmth in the swollen areas. ? You have heart, liver, or kidney disease and suddenly get edema. ? You have a fever and your symptoms suddenly get worse. These symptoms may be an emergency. Get help right away. Call 911. ? Do not wait to see if the symptoms will go away. ? Do not drive yourself to the hospital. Summary ? Edema is an abnormal buildup of fluids in the body tissues and under the skin. ? Eating too much salt (sodium)and being on your feet or sitting for a long time can cause edema in your legs, feet, and ankles. ? Raise (elevate) the injured area above the level of your heart while you are sitting or lying down. ? Follow your health care provider's instructions about diet and how much fluid you can drink. This information is not intended to replace advice given to you by your health care provider. Make sure you discuss any questions you have with your health care provider. Document Revised: 06/03/2022 Document Reviewed: 06/03/2022 [employer] Patient Education ?? 2022 Moxie Jean. Cellulitis, Adult Cellulitis is a skin infection. [...] these instructions at home: Medicines ? Take rmbx-tpq-gllxwvu and prescription medicines only as told by [...] as antibiotic medicines or antihistamines. ? Take yvhs-eex-ktjoykp and prescription medicines only as told by [...] provider. Document Revised: 07/10/2022 Document Reviewed: 07/11/2022 [facility] Patient Education ?? 2022 [employer] Patient/Munitions Handler Supervisor Signature Patient Name:STEPHAN LEAVITT I have received this information and my questions have been answered. Patient/Munitions Handler Supervisor Name: Patient/Munitions Handler Supervisor Signature: Relationship to Patient: Witness Name/Signature: Date: Electronically Signed on: 05/22/2024 21:17 EDTSigned by:AB Patient Care team information Care Team Personnel Name: NIKOLAS BUENROSTRO APRN Position: No Access Member Role: Primary Care Physician Address: Address: [address], [place] [address] [[email or web address]] Care Team Related Persons Name: MIROSLAVA LEAVITT Address: [address] [id number] [facility]
--- OUTSIDE RECORDS SUMMARY | 2024-09-22 12:15 | XMS_ITS | Continuity of Care Document ---
Author Organization [facility] Ambulatory Clinics Address [address] [place] [address] Encounter [facility] NBR [id number] Date(s): 08/28/22 - 08/28/22 [facility] Ambulatory Clinics [address] [place], [place] [address] Encounter Diagnosis Primary chronic progressive multiple sclerosis(Discharge Diagnosis) - 08/28/22 Chronic fatigue syndrome(Discharge Diagnosis) - 08/28/22 Abnormal gait(Discharge Diagnosis) - 08/28/22 Multiple sclerosis(Final) - Unspecified abnormalities of gait and mobility(Final) - Myalgic encephalomyelitis/chronic fatigue syndrome(Final) - Discharge Disposition: Home or Self Care Attending Physician: Shon Ramos MD Allergies, Adverse Reactions, Alerts No Known Medication Allergies Assessment and Plan Future Appointments Functional Status 08/28/22 Other exposure to Infectious Disease Non e Medications Ampyra 10 mg oral tablet, extended release 10 mg = 1 tab, Oral, every 12 hr, # 60 tab, 3 Refill(s), Pharmacy: [id number] Start Date: 08/28/22 Stop Date: 12/26/22 Status: [...] Most recent to oldest [Reference Range]: 1 Peripheral Pulse Rate [60-100 bpm] 61 bp m (08/28/22 10:03 AM) Blood Pressure [90-140/60-90 mmHg] 122/7 1mmHg (08/28/22 10:03 AM) Weight 110.77 kg (08/28/22 10:03 AM) Weight Measured (lbs) 244.206 lb (08/28/22 10:03 AM) [place] Body Weight Calculated 77.6 kg (08/28/22 10:03 AM) Height 182.88 cm (08/28/22 10:03 AM) Height/Length Measured (inches) 72 inch (08/28/22 10:03 AM) BSA Measured 2.37 m2 (08/28/22 10:03 AM) Body Mass Index 33.12 kg/m2 (08/28/22 10:03 AM) Social History Social History Type Response Tobacco Never tobacco user T obacco Use:. Sex Physician Outpatient Note * Shon Ramos MD: PERFORM, MODIFY, MODIFY, MODIFY, MODIFY, MODIFY, MODIFY, MODIFY, MODIFY Event Display: Office Clinic Note Physician Authored Date: [id number] STEPHAN LEAVITT :1975 Age:47 years Sex:Male Visit Date:08/28/2022 Chief Complaint Pt comes today with his , Ellen. for a MS follow up. He was last seen in this office on 07/04/2020. He c/o being more fatigued. History of Present Illness This very pleasant gentleman comes with his .?? I had last seen him in June 2020.?? He is on Ocrevus infusions. ?? He says he is more fatigued.?? He says that his inability to walk??longer distances and also going up the stairs is difficult.?? He may have 2 good days and after that it is very hard for him to??continue??with his??abilities to work.?? He has tried to continue working??in spite of all his??impairments from his multiple sclerosis.?? Heat definitely makes his symptoms worse. ?? He tells me that yesterday??he was on the third floor and he had a difficult time??walking up and??to the third floor. ?? He is also complaining of urinary urgency.?? He says in the past he could hold his urine for long hours. ??But now??he has to shen if??he??has to go to the bathroom. ?? He is also complaining of some irritability. ?? He says that??he had gone swimming and then for the next 3 days he could not??be as functional as he was. ? Had a long discussion with the patient and his about AMPYRA- dalfampridine.?? We discussed the pros and cons of it.?? Given his difficulties with walking??I think it would be very reasonable for him to be on Ampyra.?? We will fill out the 60-day free trial. ??I also sent a prescription to [facility]. ?? I??explained to him that his kidney function is to be good. ??He recently had labs with his primarycare physician??Ashley Stringer APRN at [facility] in??[place]. ??All his labs were good. ?? I also explained that there is a small risk of seizures with this medication.?? He does not have a history of epilepsy or seizures. ?? Have suggested that he start by taking??1??tablet daily??for about a week and then increase it to 1tablet twice daily.?? They expressed understanding. ?? We did a 25 feet walk.?? He did return in 6 seconds. ?? They want to pursue??stem cell transplant??at stem cell??institute ??in [place].?? I explained tothem that I do not have enough knowledge about stem cell transplant and multiple sclerosis.?? I explained to them that it is not FDA approved.?? I also explained to them that??there are many kinds oftransplant is being done like??bone marrow transplant??and other forms of transplant.?? There is mesenchymal stem cell transplant being done. ??I strongly??recommended that they discuss this with a MS specialist before the move forwards.?? They expressed understanding. Review of Systems ?? The patient has no additional neurologic, psychiatric, head, ears, eyes, nose, throat, pulmonary, cardiovascular, gastrointestinal, musculoskeletal, skin, endocrine, renal, immunological, allergic, lymphoid, rheumatologic??and hematological symptoms other than those noted above Physical Exam Vitals & Measurements HR:??61??(Peripheral)?? BP:??122/71?? HT:??182.88??cm?? WT:??110.77??kg?? BMI:??33.12?? BSA:??2.37?? He is pleasant awake alert oriented. ??Visual lyman are full, eye movements are intact muscle strength is 5/5??deep tendon reflexes knee jerks are 2+ ankle jerks are 2+??jawkbg-wwhd-aawcop testing is normal. ?? Gait evaluation:. ??He gets up quite well. ??He has a slightly wide-based. ??He has a??foot drop onthe left.?? He is standing to walk??quite as??slowly than what I seen him in the past. ??He turns reasonably well. ??There is reasonable arm swing bilaterally. ?? TIMED 25 FEET WALK was 6 seconds Assessment/Plan 1.??Primary chronic progressive multiple sclerosis??G35 ?? August ?? This very pleasant gentleman comes with his .?? I had last seen him in June 2020.?? He is on Ocrevus infusions. ?? He says he is more fatigued.?? He says that his inability to walk??longer distances and also going up the stairs is difficult.?? He may have 2 good days and after that it is very hard for him to??continue??with his??abilities to work.?? He has tried to continue working??in spite of all his??impairments from his multiple sclerosis.?? Heat definitely makes his symptoms worse. ?? He tells me that yesterday??he was on the third floor and he had a difficult time??walking up and??to the third floor. ?? He is also complaining of urinary urgency.?? He says in the past he could hold his urine for long hours. ??But now??he has to shen if??he??has to go to the bathroom. ?? He is also complaining of some irritability. ?? He says that??he had gone swimming and then for the next 3 days he could not??be as functional as he was. ? I Had a long discussion with the patient and his about AMPYRA- dalfampridine.?? We discussed the pros and cons of it.?? Given his difficulties with walking??I think it would be very reasonable for him to be on Ampyra.?? We will fill out the 60-day free trial. ??I also sent a prescription to [facility]. ?? I??explained to him that his kidney function is to be good. ??He recently had labs with his primarycare physician??Ashley Stringer APRN at [facility] in??[place]. ??All his labs were good. ?? I also explained that there is a small risk of seizures with this medication.?? He does not have a history of epilepsy or seizures. ?? Have suggested that he start by taking??1??tablet daily??for about a week and then increase it to 1tablet twice daily.?? They expressed understanding. ?? We did a 25 feet walk.?? He did return in 6 seconds. ?? They want to pursue??stem cell transplant??at stem cell??institute ??in [place].?? I explained to them that I do not have enough knowledge about stem cell transplant and multiple sclerosis.?? I explained to them that it is not FDA approved.?? I also explained to them that??there are many kinds of transplant is being done like??bone marrow transplant??and other forms of transplant.?? There is mesenchymal stem cell transplant being done. ??I strongly??recommended that they discuss this with a MS specialist before the move forwards.?? They expressed understanding. ?? In the meantime??he will??continue with Ocrevus infusions every 6 months. ?? They wanted a referral for [facility]multiple sclerosis specialist.?? I had already made a referral??in 2019 and again in 2019 when I last saw him.?? He usually [facility] keeps the referrals for about??3 years.?? Asked him to check with [facility] and if they need another referral would be happy to do so. ?? REVIEW OF PRIOR RECORDS 2019 1. Multiple sclerosis, primary progressive - G35 (Primary), as per Dr. Young 2018; Ocrevus infusion 03/10/19 and 03/25/19 ; 01/10/20, Infusions 03/10/29 and 03/25/19 01/10/20 ?? 2. Multiple sclerosis - G35, Abnormal MRI brain WITH MRI BRAIN LESIONS) AND +VE CSF (11 OLIGOCLONALBANDS AND INCREASED IgG synthesis rate): ?? 3. Demyelinating disease of central nervous system - G37.9 ?? 4. Abnormal brain MRI - R90.89, MRI brain 05/2010, 11/2010 from [facility] and MRI brain [facility] 12/2012, 2013, 2015, 2018 show lesions in brain as seen in MS ?? 5. Visual disturbance - H53.9, Normal VEP, normal SSEP from [facility]; has seen Dr. Hogan, neuroopthal at [facility] ?? 6. CSF abnormal - R83.9, 11 Oligoclonal bands in CSF and increased IgGsynthesis rate from 2010 doneat [facility] ?? He says that the methylphenidate is not working. His says he becomes bartholomew and cranky on the methylphenidate. She is wanting low-dose naltrexone. She says that this can be dispensed at the [facility] in [facility]. She says it starts at 1.5 mg once a day for a week then it is titrated by 1.5 mg increase every week to a target of 4.5 mg daily. On 12/13/19 his CD 19 AND CD 20 COUNT WAS 2/% AND HE WAS REINFUSED WITH OCREVUS ON 01/09/30. He is doing well. He got OCREVUS infusions on 03/10/19and 03/25/19. He got repeat OCREVUS infusion on 01/10/20.?? CBC, CMP, SPEP, MAURILIO normal after initial infusion. NO symptoms He has chanGed his diet and feels better Appreciate Dr. Young's kind consultation of 01/18/19and reviewed his note with patient and his . 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 He thinks his EDSS is 1.5- 2.5 and his multiple sclerosis severity score( kURTZKE scale) would be between 1.7-3.4 . 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 Wilth lack of clear inflammation on MRI's , the response to a PPMS medication like B cell depleterslike Rituxan or OCREVUS would NOT be clearly helpful. However he is young and the change in his exam of ankle clonus and band like sensation at T12 may indicate a new inflammatory activity that we just can't identify by standard imaging. This , if one wished ot treat , a trial with B cell depletion for 3 or 4 years to see if his diease stabilizes would NOT be unreasonable MRI lumbar spine 2019 is unreamrkable MRI brain with gado 11/2018 as compared to MRI brain with gado 2016 is unchaged. He has lesions consistent with MS but NO new or interval or active lesions. MRI thoracic spine with gado 11/2018 compared with prior MRI thoracic spine a few years back is again unchanged. ? small tiny compression fx of T5 seen on previous MRI thoracic spine. No lesions. No thoracic spinal cord compression The ANKLE CLONUS IS A NEW FINDING SEEN for the first time in Oct 2018. This needs to be aggressively worked up as this could indicated new MS flare up. Appreciate Dr. Tariq's kind refrral. I agree with her asute observation that he has ILL SUSTAINED ANKLE CLONUS bilaterally.?? . His last MRI brain with gado and MRI cervical spine with gado were in 2015 which were stable as compared to prior MRI brain/c spine.?? My overal opinion in the past has been RADIOLOGICALLY ISOLATED SYNDROME ( WITH MRI BRAIN LESIONS) AND +VE CSF (11 OLIGOCLONAL BANDS AND INCREASED IgG synthesis rate): . MRI cervical spine with and w/o gado from [facility] 2012 showed a single QUESTIONABLE EQUIVOCAL spot ONLYon STIR images. Dr. Hernández, radiologist felt this was volume averaging and equivocal at best.. I reviewed his MRI's from [facility] and also his latest MRI from [facility] done on 12/30/2012. MRI brain from [facility] from May 2010, Nov 2010 was reviewed with patient and . I then reviewed the MRI brain from [facility] done on 12/30/2012 and compared it with those from [facility]. To my review, the MRI brain from 12/30/2012 shows a lot of the old lesions , some of them having DRAPER's fingers. There is ONE questionable new lesion in left dariana. NO Gd+ lesions in any of the MRI's. MRI cervical and thoracic spine from [facility] 12/2010 was also reviewed and it is also normal. In the past he has had INFERIOR VISUAL FIELD DISTURBANCES for 2 and 1/2 years. I reviewed his extensive records from [facility]. He has been seen by Dr Hogan,Dr Calzada, Dr Jefferson. . CSF exam at [facility] from 2010 showed 11 oligoclonal bands and increased IgGsynthesis rate and index. VEP/SSEP 2010 at [facility] was normal. MRI cervical and thoracic spine 2011 from [facility] was normal. His serum KWASI was slightly high. Ct chest and echo was normal. The paper by Irma Alvarado RIS: senior care follow up of 75 patients mentions that patients needed at least 2 of the 4 criteria as mentioned by Barkhoff in Brain 1997. They felt that Gd+ LESION and INFRATENTORIAL lesions increased the risk of first clinical event. Another paper by Jame Herbert RIS: 5 year risk for an initial clinical event from a multinationalcohort. This paper mentions that presence of FAMILY HX or SPINAL CORD lesions were SIGNIFICANT PREDICTORS of development of first clinical event. His first MRI at [facility] was in May 2010.?? Also , he did NOT have any spinal cord lesions. There is just one questionable left dariana lesion on the new MRI of [facility] 12/2012. No Gd+ lesions. In the past I had offered patient and his the option of either going on tx ( IFN or glatiamer)or serial MRI's. They had preferred serial MRI''s. PLAN: Recheck serial 19 and CD20 counts. We have approval for his ocrelizumab infusion. Depending on the CD20 count we will decide if he gets the infusion now or do we wait a few months. His feels that the methylphenidate is making him angry.He says that the methylphenidate is notworking. His says he becomes bartholomew and cranky on the methylphenidate. She is wanting low-dose naltrexone. She says that this can be dispensed at the [facility] in [facility]. She says it starts at 1.5 mg once a day for a week then it is titrated by 1.5 mg increase every week to a target of 4.5 mg daily. On 12/13/19 his CD 19 AND CD 20 COUNT WAS 2/% AND HE WAS REINFUSED WITH OCREVUS ON 01/09/30. He is doing well. Recheck CD 20/CD19 4 MONTHS AFTER OCREVUS INFUSION and every month after that If the CD19> 2% will re infuse OCREVUS 1. Again DISCUSSED in detail Dr. 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 He thinks his EDSS is 1.5- 2.5 and his multiple sclerosis severity score ( MSSS) would be between 1.7-3.4 . 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 Wilth lack of clear inflammation on MRI's , the response to a PPMS medication like B cell depleterslike Rituxan or OCREVUS would NOT be clearly helpful. However he is young and the change in his exam of ankle clonus and band like sensation at T12 may indicate a new inflammatory activity that we just can't identify by standard imaging. This , if one wished ot treat , a trial with B cell depletion for 3 or 4 years to see if his diease stabilizes would NOT be unreasonable 2. Anti CD-20 therapy like OCREVUS can cause multiple myeloma and low IgG can cause risk of infections. Hence will need to monitor SPEP, MAURILIO, IgG levels Low wbc counts have been reported. Hence need to check 3. Check CD19/CD20. The target of B cell depleting therapies (Rituxan, Ocrelizumab) is CD20. , which is on almost all B cells and we can measure B cells in blood by measuring how many CD 19 cells arethere by FLOW CYTOMETRY. The normal lymphocyte count in peripheral blood is about 1000-2500lymphocytes per microliter. The normal percentage of B cells is about 10-20% of the total lymphs, so the absolute number of B cells per microliter is about 200-500 per microliter. After OCREVUS infusion is given, CD 19 cells are undetectable. At about 4-6 mnths after Bcell depleting therapies, CD-19 b CELLS START RE- APPEARING in the blood. Once the percentage of B cells is 2% or higher or the Number of B cells is GREATER THAN 10 cells permicroliter, another dose of OCREVUS needs to be given, 4.Asked him to call me if any worsening 5. REPEAT B CELL CD/19 /20 today; if > 2% or > 10 cells /microliter, then reinfuse with OCREVUS; will also check serum protein electrophoresis and also serum immunofixation as IgG G levels can go down with Ocrelizumab 6. Prescription for low-dose naltrexone sent to [facility] pharmacy 7. Discontinue methylphenidate as it is not working according to his and it is making him angry f/u3 months. ? PLAN: august ? He seems to be having more fatigue??more difficulty with walking upstairs. 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 ?? He is??tolerating Ocrevus infusions quite well. I Had a long discussion with the patient and his about AMPYRA- dalfampridine.?? We discussed the pros and cons of it.?? Given his difficulties with walking??I think it would be very reasonable for him to be on Ampyra.?? We will fill out the 60-day free trial. ??I also sent a prescription to [facility]. ?? I??explained to him that his kidney function is to be good. ??He recently had labs with his primarycare physician??Ashley Stringer APRN at [facility] in??[place]. ??All his labs were good. ?? I also explained that there is a small risk of seizures with this medication.?? He does not have a history of epilepsy or seizures. ?? Have suggested that he start by taking??1??tablet daily??for about a week and then increase it to 1tablet twice daily.?? They expressed understanding. ?? We did a 25 feet walk.?? He did return in 6 seconds. ?? They want to pursue??stem cell transplant??at stem cell??institute ??in [place].?? I explained to them that I do not have enough knowledge about stem cell transplant and multiple sclerosis.?? I explained to them that it is not FDA approved.?? I also explained to them that??there are many kinds of transplant is being done like??bone marrow transplant??and other forms of transplant.?? There is mesenchymal stem cell transplant being done. ??I strongly??recommended that they discuss this with a MS specialist before the move forwards.?? They expressed understanding. ?? In the meantime??he will??continue with Ocrevus infusions every 6 months. ?? They wanted a referral for [facility]multiple sclerosis specialist.?? I had already made a referral??in 2019 and again in 2020 when I last saw him.?? He usually [facility] keeps the referrals for about??3 years.?? Asked him to check with [facility] and if they need another referral would be happy to do so. ?? 2.??Abnormal gait??R26.9 3.??Chronic fatigue syndrome??G93.32 Problem List/Past Medical History Ongoing No qualifying data Historical No qualifying data Medications methylphenidate 10 mg/8 hr oral tablet, extended release ocrelizumab 300 mg/10 mL intravenous solution, 600 mg, IV Piggyback, every 6 mo Allergies No Known Medication Allergies Social History Electronic Cigarette/Vaping Electronic Cigarette Use: Never. Tobacco Never tobacco user Tobacco Use:. Attending Attestation ?? Risks, Benefits , alternatives and complications discussed with the patient.Total??time spent on the day of the visit ( both previsit, during and post visit) was??53 minutes spent discussing diagnosis, prognosis, work- up and management. Time was also spent in reviewing medical records, personally r eviewing images and interpreting it, personally reviewing and interpreting electrodiagnostic studies, labs and discussing with other providers. ?? Thank you very much for allowing us to participate in the care of your patient. Please do not hesitate to call if you have any questions or comments. ?? This document was prepared using [employer] voice recognition software.Please excuse any errors.?? Electronically Signed on 08/28/22 11:20 AM Shon Ramos MD
--- OUTSIDE RECORDS SUMMARY | 2024-09-22 12:15 | XMS_ITS | Continuity of Care Document ---
Author Organization [facility] Address [address] [place] [address] Care Team Providers Care Tax Adjuster Name Role Phone NIKOLAS BUENROSTRO APRN Primary Care Physician [phone] Encounter [facility] NBR [id number] Date(s): 07/28/23 - 07/28/[address] [address] Encounter Diagnosis Intervertebral disc disorders with radiculopathy, lumbar region(Final) - Multiple sclerosis(Final) - Disease of spinal cord, unspecified(Final) - Abnormal reflex(Final) - Discharge Disposition: Home or Self Care Attending Physician: Shon Ramos MD Admitting Physician: Shon Ramos MD Referring Physician: Shon Ramos MD Allergies, Adverse Reactions, Alerts No Known Medication Allergies Assessment and Plan Future Appointments Medications ocrelizumab 300 mg/10 mL intravenous solution 600 mg =, IV Piggyback, every 6 mo, 0 Refill(s) Start Date: 08/28/22 Status: Ordered Problem List Condition Confirmation Course Effective Dates Status H [facility] Status Informant Unspecified abnormal finding in cerebrospinal [...] Exam Date Time Procedure Performing Provider Status 07/28/23 9:07 AM MRI Spine Thoracic w / + w/o Contrast Connie Greene; Auth (Verified) Notes: (MRI Spine Thoracic w/ + w/o Contrast) Reason For Exam: ms, thoracic myelopathy MRI Spine Thoracic w/ + w/o Contrast EXAM DESCRIPTION: MRI Spine Thoracic w/ + w/o Contrast 07/28/2023 INDICATION: MS, THORACIC MYELOPATHY TECHNIQUE: Multiplanar MRI examination of the thoracic spine utilizing T1, fat-suppressed T2 and fast STIR technique. Postcontrast axial and sagittal T1 weighted images were also obtained 20 mL of MultiHance contrast was utilized COMPARISON: MRI thoracic spine with and without contrast from 11/13/2018 FINDINGS: Lateral thoracic spine alignment is satisfactory. T2-3: Minimal posterior disc bulge without significant stenosis or cord encroachment T3-4: Mild central disc protrusion without significant stenosis or cord encroachment. T5-6: Central disc protrusion without significant stenosis. Posterior CSF space is well maintained. T7-8: Minimal posterior disc bulge without significant stenosis or cord encroachment Remaining levels demonstrate no focal disc protrusion or significant stenosis. Neural foramina appear without significant encroachment throughout the thoracic region No intrinsic signal abnormality within the thoracic spinal cord to suggest edema or myelomalacia with no evidence of syrinx. No findings to suggest demyelination. Postcontrast images demonstrate no abnormal enhancement Stable mild compression deformity involving the superior endplate of the T5 vertebral body. No additional compression deformity in the thoracic region. No suspicious regional marrow lesions Paraspinal soft tissues are unremarkable. IMPRESSION: Mild spondylotic changes. No significant thoracic stenosis or cord compression. Please see above discussion for individual level description. Normal thoracic spinal cord Postcontrast images demonstrate no abnormal enhancement. JOB #: [id number] Final Signed by: López Hammer MD Signed (Electronic Signature): 07/28/2023 9:20 am * Exam Date Time Procedure Performing Provider Status 07/28/23 8:41 AM MRI Spine Lumbar w/o Contrast Connie Thapa; Auth (Verified) Notes: (MRI Spine Lumbar w/o Contrast) Reason For Exam: lumbar radiculopathy MRI Spine Lumbar w/o Contrast EXAM DESCRIPTION: MRI Spine Lumbar w/o Contrast 07/28/2023 INDICATION: LUMBAR RADICULOPATHY TECHNIQUE: Multiplanar MRI examination of the lumbar spine utilizing T1, fat-suppressed T2 and fast STIR technique. COMPARISON: 12/16/2018 FINDINGS: Mild retrolisthesis at L3-4. Lumbar lordosis is otherwise satisfactory. No scoliosis L5-S1: Mild diffuse disc bulge. No focal disc protrusion, significant spinal stenosis or neural foraminal narrowing. AP spinal canal diameter is 14 mm. L4-5: Mild diffuse disc bulge. No significant spinal stenosis with AP spinal canal diameter of 12 mm. Mild bilateral lateral recess stenosis with mild left neural foraminal narrowing. No significant right neural foraminal narrowing L3-4: Mild diffuse disc bulge. No significant central stenosis with AP spinal canal diameter of 11 mm. Mild bilateral lateral recess stenosis. No significant neural foraminal narrowing L2-3: No focal disc protrusion, significant spinal stenosis or neural foraminal narrowing. L1-2: No focal disc protrusion, significant spinal stenosis or neural foraminal narrowing. T12-L1: No focal disc protrusion, significant spinal stenosis or neural foraminal narrowing. The conus is normal in morphology and signal intensity and terminates at the L1 level. No suspicious regional marrow lesions. No vertebral body compression deformity in the lumbar region. Paraspinal soft tissues are unremarkable. IMPRESSION: Mild spondylotic changes. No significant central stenosis. Mild bilateral lateral recess stenosis with mild left neural foraminal narrowing at L4-5 with mild bilateral lateral recess stenosis at L3-4. Please see above discussion for individual level description. Normal conus. JOB #: [id number] Final Signed by: López Hammer MD Signed (Electronic Signature): 07/28/2023 9:13 am Social History Social History Type Response Tobacco Never tobacco user T obacco Use:. Sex Patient Care team information Care Team Personnel Name: NIKOLAS BUENROSTRO APRN Position: No Access Member Role: Primary Care Physician Address: Address: [place] [address]- Care Team Related Persons Name: MIROSLAVA LEAVITT Address: Home [address] [place] [id number] [facility]
--- OUTSIDE RECORDS SUMMARY | 2024-09-22 12:15 | XMS_ITS | Continuity of Care Document ---
Author Organization [facility] Address [address] [place] [id number] Care Team Providers Care Brilliandeer Lopper Name Role Phone Ashley Stringer Primary Care Physician Encounter [facility] [facility] NBR [id number] Date(s): 12/31/22 - 12/31/[address] [address] Encounter Diagnosis Multiple sclerosis(Final) - Discharge Disposition: Home or Self Care Attending Physician: Shon Ramos MD Admitting Physician: Shon Ramos MD Allergies, Adverse Reactions, Alerts No Known Medication Allergies Assessment and Plan Future Appointments Functional Status 12/31/22 Recent Travel History No recent travel Other exposure to Infectious Disease Non e Medications Ampyra 10 mg oral tablet, extended release 10 mg = 1 tab, Oral, every 12 hr, # 60 tab, 3 Refill(s), Pharmacy: [facility] #[id number] Start Date: 08/28/22 Stop Date: 12/26/22 Status: [...] [36-38 Deg C ] 36.9 Deg C (12/31/22 8:45 AM) Peripheral Pulse Rate [60-100 bpm] 53 bp m *LOW* (12/31/22 8:45 AM) Respiratory Rate [12-24 br/min] 16 br/mi n (12/31/22 8:45 AM) Blood Pressure [90-140/60-90 mmHg] 124/6 9mmHg (12/31/22 8:45 AM) Social History Social History Type Response Tobacco Never tobacco user T obacco Use:. Sex Patient Care team information Care Team Personnel Name: Ashley Stringer Position: No Access Member Role: Primary Care Physician Address: Address: [address] [facility] [place] [address]-
--- OUTSIDE RECORDS SUMMARY | 2024-09-22 12:15 | XMS_ITS | Continuity of Care Document ---
Author Organization [facility] Ambulatory Clinics Address [address] [place] [address] Care Team Providers Care Wet Wash Assembler Name Role Phone NIKOLAS BUENROSTRO APRN Primary Care Physician Encounter [facility] NBR [id number] Date(s): 05/22/23 - 05/22/23 [facility] Ambulatory Clinics [address] [place], [place] [address] Discharge Disposition: Home Allergies, Adverse Reactions, Alerts No Known Medication Allergies Medications Ampyra 10 mg oral tablet, extended release 10 mg = 1 tab, Oral, every 12 hr, # 60 tab, 3 Refill(s), Pharmacy: [facility] #[id number] Start Date: 08/28/22 Stop Date: 12/26/22 Status: Ordered methylphenidate 10 mg/8 hr oral tablet, extended release 28 EA, take 1 tablet by mouth once daily, 0 Refill(s) Start Date: 08/28/22 Status: Ordered ocrelizumab 300 mg/10 mL intravenous solution 600 mg =, IV Piggyback, every 6 mo, 0 Refill(s) Start Date: 08/28/22 Status: Ordered Problem List Condition Confirmation Course Effective Dates Status [facility] Status Informant Unspecified abnormal finding in cerebrospinal [...] Role: Primary Care Physician Address: Address: [address] [facility], [place] [address]
--- OUTSIDE RECORDS SUMMARY | 2024-09-22 12:15 | XMS_ITS | Continuity of Care Document ---
Author Organization [facility] Address [address] [place] [address] Encounter Date(s): 07/30/24 - 07/30/24 [facility] [address] [place] [address]- [place] Encounter Diagnosis MS (multiple sclerosis)(Discharge Diagnosis) - 07/30/24 Discharge Disposition: Home or Self Care Attending Physician: Palma Haider PA-C Allergies, Adverse Reactions, Alerts No Known Allergies Assessment and Plan Extracted from: Title:Office Visit Note Author:Raza Haider PA-C Date:07/30/24 1. Multiple Sclerosis This is a very pleasant 49 yo M with established diagnosis of multiple sclerosis, possibly primary progressive since 2010. ?? He has been treated with Ocrevus which he is tolerating with slow infusion rate and wishes to continue, he does feel he has continued to decline and we spent time reviewing risk of progression of DMT and that despite treatment some patients may continue to progress. ?? Discussed his interest in stem cells and that due to lack of data and regulation this is not something that we recommend, he will keep us informed of his treatment plan, it does not sound like there is any immunotherapy as part of his potential treatment protocol that would cause concern since he is on Ocrevus. ?? MRI ordered ?? Labs stable ?? Safety monitoring reviewed in detail with the??patient. Ocrevus is an infusion therapy for the use of both relapsing and progressive forms of multiple sclerosis.?? There are certain risks associated with the use of this medication including but not limited to infusion reactions, infections, and the possibility of malignancies, particularly breast cancer.?? Maintaining routine screening evaluations remains important.? 2. Symptom management Focus on symptom management including spasticity he will increase Baclofen recommend 0 mg TID to start. Topical Magnesium reviewed, along with regular stretching and chair yoga. Failed Ampyra in the past Has RX for LDN doesn't take consistently will try again. Reviewed heat intolerance, cooling products, MSS[employer] cooling assistance fund reviewed. ?? 3. MS Resources ? We reviewed vaccines, he declines flu and COVID vaccines, will consider shingles vaccine. ?? Reviewed patient's questions/concerns about current COVID-19 pandemic resources reviewed including MSIF.org and NMSS website ? Future Appointments Appointment Date:01/28/2025 09:30:00 AM Scheduled Provider:Palma Haider PA-C Location:[facility] Appointment Type:SOHAIL ROV Routine Office Visit Future Scheduled Tests Laboratory* Urinalysis, Complete, with Culture Reflex, if Indicated 06/17/24 * Complete Blood Count with Differential 06/17/24 * Comprehensive Metabolic Panel 06/17/24 * Immunoglobulins (IgG, IgA, IgM), Quantitative-[facility] 06/17/24 Radiology* MRI Brain w/o Contrast 07/30/24 * MRI Spine Cervical w/o Contrast 07/30/24 Medications baclofen 10 mg oral tablet 1 tab, Oral, Daily Start Date: 07/30/24 Status: Ordered methylphenidate 20 mg oral tablet 1 tab, Oral, Daily, 0 Refill(s) Start Date: 07/30/24 Status: Ordered Ocrevus 300 mg/10 mL intravenous solution 600 [...] Range]: 1 Height/Length [124.5-243.8 cm] 185.42 cm (07/30/24 11:27 AM) Peripheral Pulse Rate [50-100 bpm] 55 bp m (07/30/24 11:27 AM) Blood Pressure [90-140/60-90 mmHg] 118/7 8mmHg (07/30/24 11:27 AM) Blood Pressure Location Right arm (07/30/24 11:27 AM) Cuff Type Adult (07/30/24 11:27 AM) Social History Social History Type Response Smoking Status Never smoker entered on: 04/20/24 Sex Patient Care team information Care Team Related Persons Name: MIROSLAVA LEAVITT
--- OUTSIDE RECORDS SUMMARY | 2024-09-22 12:15 | XMS_ITS | Continuity of Care Document ---
Author Organization [facility] Ambulatory Clinics Address [address] [place] [address] Care Team Providers Care Punchboard Assembler Name Role Phone NIKOLAS BUENROSTRO APRN Primary Care Physician [phone] Encounter [facility] NBR [id number] Date(s): 09/25/23 - 09/25/23 [facility] Ambulatory Clinics [address] [place], [place] [address] Encounter Diagnosis Right corneal abrasion(Discharge Diagnosis) - 09/25/23 Foreign body in cornea, right eye, initial encounter(Final) - Other foreign body entering into or through a natural orifice, initial encounter (Final) - Discharge Disposition: Home or Self Care Attending Physician: Vandana Ho PA-C Allergies, Adverse Reactions, Alerts No Known Medication Allergies Assessment and Plan Future Appointments Functional Status 09/25/23 Other exposure to Infectious Disease Non e Medications erythromycin 0.5% ophthalmic ointment 0.5 inch, Eye-Right, QID, # 3.5 g, 0 Refill(s), Pharmacy: [facility] #[id number], 185.42, cm, 07/07/23 8:51:00 EDT, Height Start Date: 09/25/23 Stop Date: 09/30/23 Status: Ordered methylphenidate 20 mg/8 hr oral [...] 1 Temperature Tympanic [36.6-38.1 Deg C] 3 6.6 Deg C (09/25/23 11:53 AM) Peripheral Pulse Rate [60-100 bpm] 70 bp m (09/25/23 11:53 AM) Respiratory Rate [12-24 br/min] 20 br/mi n (09/25/23 11:53 AM) Blood Pressure [90-140/60-90 mmHg] 128/9 5mmHg (09/25/23 11:53 AM) Mean Arterial Pressure, Cuff [70-110 mmH g] 106 mmHg (09/25/23 11:53 AM) Social History Social History Type Response Tobacco Never tobacco user T obacco Use:. Sex Physician Outpatient Note * Vandana Ho PA-C: PERFORM Event Display: Office Clinic Note Physician Authored Date: [id number] STEPHAN LEAVITT :1975 Age:48 years Sex:Male Visit Date:09/25/2023 Primary Care Physician: NIKOLAS BUENROSTRO APRN Chief Complaint Pt states foreign object in right eye, pt states blurred vision to right eye History of Present Illness This is a 48-year-old male who presents for evaluation of possible foreign body in the right eye. 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 ??His right eye has since been painful, tearing and he is preferring to keep it shut. ??He has had some light sensitivity.?? He still feels like something may be in his right eye but he is unsure.?? He feels like he has a scratch in his eye.?? He denies any double vision,blurry vision. Physical Exam Vitals & Measurements T:??36.6?C ??(Tympanic)?? HR:??70??(Peripheral)?? RR:??20?? BP:??128/95?? SpO2:??100%?? Pain Score:??5?? General: Alert and oriented x 3,??no acute distress, well-nourished and hydrated Eyes:??Pupils equal and reactive to light, right eye??with conjunctival erythema, persistent tearing, mild scleral injection.?? Fluorescein exam reveals a??1 mm corneal abrasion??at the 9 o'clock position??as well as a small <1 mm black foreign body in the right upper lid, successfully removed with q-tip, no ulcerations, keratitis, dendritic patterns Procedure The eye was anesthetized with 1 drop of tetracaine. ??A??Farley lamp was then used to examine the eye. ??Increased conjunctival uptake noted at the??right 9 o'clock position of the cornea.?? No ulcerations, dendritic patterns Assessment/Plan 1.??Right corneal abrasion??S05.01XA Patient presenting with evidence of right-sided corneal abrasion noted on the??fluorescein exam.?? There was also noted to be a very small foreign body in the right upper lid which was successfully removed using??a Q-tip.?? Patient educated on??the??typical course of corneal abrasions.?? I will send in a prescription for erythromycin to protect from secondary infection.?? Encouraged rest??and avoiding overstimulating the eye. ??Patient is to follow-up for any worsening pain, vision changes, drainage, swelling, other symptoms of concern Ordered: erythromycin 0.5% ophthalmic ointment, 0.5 inch, Eye-Right, QID, # 3.5 g, 0 Refill(s), Pharmacy: [facility] #[id number], 185.42, cm, 07/07/23 8:51:00 EDT, Height ?? Problem List/Past Medical History Ongoing Abnormal findings [...] in cerebrospinal fluid Historical No qualifying data Medications erythromycin 0.5% ophthalmic ointment, 0.5 inch, Eye-Right, QID methylphenidate 20 mg/8 hr oral tablet, extended release, 20 mg= 1 tab, Oral, Daily ocrelizumab 300 mg/10 mL intravenous solution, 600 mg, IV Piggyback, every 6 mo Allergies No Known Medication Allergies Social History Electronic Cigarette/Vaping Electronic Cigarette Use: Never. Tobacco Never tobacco user Tobacco Use:. Electronically Signed on 09/25/23 12:42 PM Vandana Ho PA-C Patient Care team information Care Team Personnel Name: NIKOLAS BUENROSTRO APRN Position: No Access Member Role: Primary Care Physician Address: Address: [address] [place] [address]- Care Team Related Persons Name: MIROSLAVA LEAVITT Address: Home [address] [place] [phone] [facility]
--- OUTSIDE RECORDS SUMMARY | 2024-09-22 12:15 | XMS_ITS | Continuity of Care Document ---
Author Organization [facility] Address [address] [place] [address] Encounter Date(s): 02/23/24 - 02/23/[address] [address]- [place] Discharge Disposition: Home or Self Care
--- OUTSIDE RECORDS SUMMARY | 2024-09-22 12:15 | XMS_ITS | Continuity of Care Document ---
Author Organization [facility] Ambulatory Clinics Address [address] [place] [address] Care Team Providers Care Senior Accounting Analyst Name Role Phone NIKOLAS BUENROSTRO APRN Primary Care Physician Encounter [facility] NBR [id number] Date(s): 07/07/23 - 07/07/23 [facility] Ambulatory Clinics [address] [place] [address]- Discharge Disposition: Home Allergies, Adverse Reactions, Alerts [...] Member Role: Primary Care Physician Address: Address: [address] [facility] [address]
--- OUTSIDE RECORDS SUMMARY | 2024-09-22 12:15 | XMS_ITS | Continuity of Care Document ---
Author Organization [facility] Ambulatory Clinics Address [address] [place] [address] Care Team Providers Care Service Vehicle Operator Name Role Phone NIKOLAS BUENROSTRO APRN Primary Care Physician Encounter [facility] NBR [id number] Date(s): 07/07/23 - 07/07/23 [facility] Ambulatory Clinics [address] [place] [address]- Discharge Disposition: Home Allergies, Adverse Reactions, Alerts [...] Member Role: Primary Care Physician Address: Address: [address] [facility], [place] [address]
--- OUTSIDE RECORDS SUMMARY | 2024-09-22 12:16 | XMS_ITS | Encounter Summary ---
Author Organization [facility] [place] [address] Care Team Providers Care Electrical Installation Supervisor Name Role Phone Luis Armando Wisdom MD Primary Care Provider [phone] Encounter Details Date Type Department Care Team (Late st Contact Info) Description 08/01/2010 [place] [id number] Destiny Palacio [facility] [place] [address] Social History Tobacco Use Types Packs/Day Years Used Date Smoking Tobacco: Never Assessed Sex and Gender Information Value Date Recorded Sex Assigned at Not on file Gender Identity Not on file Sexual Orientation Not on file documented as of this encounter Plan of Treatment Not on file documented as of this encounter Procedures Procedure Name Priority Date/Time Associated Diagnosis Comments GLUCOSE Routine 08/01/2010 3:08 PM EDT documented in this encounter Results * GLUCOSE, RANDOM (08/01/2010 3:08 PM EDT) Glucose 107 <=199 mg/dL [facility] Comment:Diabetes: >=200 mg/d L plus symptoms Blood specimen (specimen) 08/01/2010 3:08 PM EDT 08/01/2010 3:19 PM EDT Destiny Palacio DO CHEMISTRY ORDERABLES [facility] [place] documented in this encounter Visit Diagnoses Not on filedocumented in this encounter Care Teams Electrical Installation Supervisor Relationship Specialty Start Date End Date Luis Armando Wisdom MD [facility] [address] [place] [address] PCP - General 09/04/10 10/12/18 documented as of this encounter
--- OUTSIDE RECORDS SUMMARY | 2024-09-22 12:16 | XMS_ITS | Encounter Summary ---
Author Organization [facility] [place] [address] Care Team Providers Care Mdm Sr Name Role Phone Luis Armando Wisdom MD Primary Care Provider [phone] Encounter Details Date Type Department Care Team (Late st Contact Info) Description 12/30/2012 Ancillary Procedure Radiology Library at [facility] [place] [id number] Jesse Young MD [facility] [place] [address] Social History Tobacco Use Types Packs/Day Years Used Date Smoking Tobacco: Never Assessed Sex and Gender Information Value Date Recorded Sex Assigned at Not on file Gender Identity Not on file Sexual Orientation Not on file documented as of this encounter Plan of Treatment Not on file documented as of this encounter Procedures Procedure Name Priority Date/Time Associated Diagnosis Comments FILM LIBRARY STORAGE ONLY MR HEAD Routine 12/30/2012 12:00 AM EDT documented in this encounter Results * Film Library- Storage Only MR Head (12/30/2012 12:00 AM EDT) Narrative ALEXANDER - 01/06/2019 12:55 AM EDT This exam is auto-finalizing. It's purpose is for storage only. Jesse Young MD IMG FILM LIBRARY ORD ERABLES [place], [place] documented in this encounter Visit Diagnoses Not on filedocumented in this encounter Care Teams Mdm Sr Relationship Specialty Start Date End Date Luis Armando Wisdom MD [facility] [address] [place] [id number] PCP - General 09/04/10 10/12/18 documented as of this encounter
--- OUTSIDE RECORDS SUMMARY | 2024-09-22 12:16 | XMS_ITS | Encounter Summary ---
Author Organization [facility] [place] [address] Care Team Providers Care Admin Prog Coord Name Role Phone Luis Armando Wisdom MD Primary Care Provider [phone] Encounter Details Date Type Department Care Team (Late st Contact Info) Description 11/15/2010 9:30 AM EST [place] [address] Lb Jefferson MD [facility] [place] [address] Discharge Disposition: Home Social History Tobacco Use Types Packs/Day Years Used Date Smoking Tobacco: Never Assessed Sex and Gender Information Value Date Recorded Sex Assigned at Not on file Gender Identity Not on file Sexual Orientation Not on file documented as of this encounter Plan of Treatment Not on file documented as of this encounter Visit Diagnoses Not on filedocumented in this encounter Care Teams Admin Prog Coord Relationship Specialty Start Date End Date Luis Armando Wisdom MD [facility] [address] [place] [address] PCP - General 09/04/10 10/12/18 documented as of this encounter
--- OUTSIDE RECORDS SUMMARY | 2024-09-22 12:16 | XMS_ITS | Referral Summary ---
Author Organization [facility] Address [address] [place] [address] Care Team Providers Care Accounts Payable Assistant Name Role Phone Unavailable Primary Care Provider Unavailabl e Encounters Date Type Department Care Team Description 07/07/2024 Lab Requisition [facility] Pathology & Laboratory Medicine - [address] [address] Outr Resulting Lab, Provider from Last 3 Months Social History Tobacco Use Types Packs/Day Years Used Date Smoking Tobacco: Never Assessed Sex and Gender Information Value Date Recorded Sex Assigned at Not on file Legal Sex Male 18:15 EST Gender Identity Not on file Sexual Orientation Not on file Plan of Treatment Not on file Procedures Procedure Name Priority Date/Time Associated Diagnosis Comments IMMUNOGLOBULINS Routine 07/07/2024 10:14 EDT from Last 3 Months Results * (ABNORMAL) IMMUNOGLOBULINS (07/07/2024 10:14 EDT) IgG 925 610 - 1,616 mg/dL 07/08/2024 8:34 EDT [facility] IgA 202 85 - 499 mg/dL 07/08/2024 8:34 EDT [facility] IgM 30(L) 35 - 242 mg/dL 07/08/2024 8:34 EDT [facility] Blood VENOUS BLOOD / Unknown 07/07/2024 10:14 EDT 07/07/2024 17:51 EDT us Provider Outr Resulting Lab CHEMISTRY & BLOOD GA S ORDERABLES Final Result [facility] [address] [place] [address] from Last 3 Months
--- OUTSIDE RECORDS SUMMARY | 2024-09-22 12:16 | XMS_ITS | Encounter Summary ---
Author Organization [facility] [place] [address] Care Team Providers Care Director Toxicology Name Role Phone Unknown Primary Care Provider Unavailabl e Encounter Details Date Type Department Care Team (Late st Contact Info) Description 12/16/2018 Ancillary Procedure Radiology Library at [facility] [place] [address] Jesse Young MD [facility] [place] [address] Social History Tobacco Use Types Packs/Day Years [...] Diagnosis Comments FILM LIBRARY STORAGE ONLY MR SPINE Routine 12/16/2018 12:00 AM EST documented in this encounter Results * Film Library- Storage Only MR Spine (12/16/2018 12:00 AM EST) Narrative [facility] - 01/06/2019 1:14 AM EDT This exam is auto-finalizing. It's purpose is for storage only. Jesse Young MD IMG FILM [facility]D [facility] [place] documented in this encounter Visit Diagnoses Not on filedocumented in this encounter Care Teams Director Toxicology Relationship Specialty Start Date End Date Unknown None PCP - General 10/13/18 12/30/18 documented as of this encounter
--- OUTSIDE RECORDS SUMMARY | 2024-09-22 12:16 | XMS_ITS | Encounter Summary ---
Author Organization [facility] [place] [address] Care Team Providers Care Light Truck Driver Name Role Phone Luis Armando Wisdom MD Primary Care Provider [phone] Encounter Details Date Type Department Care Team (Late st Contact Info) Description 03/14/2014 Ancillary Procedure Radiology Library at [facility] [place] [id number] Jesse Young MD [facility] [place] [address] Social History Tobacco Use Types Packs/Day Years [...] FILM LIBRARY STORAGE ONLY MR HEAD Routine 03/14/2014 12:00 AM EDT documented in this encounter Results * Film Library- Storage Only MR Head (03/14/2014 12:00 AM EDT) Narrative [facility] - 01/06/2019 12:58 AM EDT This exam is auto-finalizing. It's purpose is for storage only. Jesse Young MD IMG FILM LIBRARY ORD ERABLES [place], [place] documented in this encounter Visit Diagnoses Not on filedocumented in this encounter Care Teams Light Truck Driver Relationship Specialty Start Date End Date Luis Armando Wisdom MD [facility] [address] [id number] PCP - General 09/04/10 10/12/18 documented as of this encounter
--- OUTSIDE RECORDS SUMMARY | 2024-09-22 12:16 | XMS_ITS | Encounter Summary ---
Author Organization [facility] Address [address] [place] [address] Care Team Providers Care Wind Tunnel Engineer Name Role Phone Unavailable Primary Care Provider Unavailabl e Encounter Details Date Type Department Care Team (Late st Contact Info) Description 08/06/2022 Lab Requisition [facility] Pathology & Laboratory Medicine - [facility] [address] [place] [address] Outr Resulting Lab, Provider Social History Tobacco Use Types Packs/Day Years [...] Procedure Name Priority Date/Time Associated Diagnosis Comments PSA TOTAL, DIAGNOSTIC Routine 08/06/2022 12:10 EDT documented in this encounter Results * PSA TOTAL, DIAGNOSTIC (08/06/2022 12:10 EDT) PSA 0.3 <=2.5 ng/mL 08/07/2022 18:13 EDT [facility] Blood VENOUS BLOOD / Unknown 08/06/2022 12:10 EDT 08/07/2022 16:27 EDT Narrative [facility] - 08/07/2022 18:13 EDT NOTE: Serum PSA concentration should not be interpreted as absolute evidence for the presence or absence of malignant disease. Assayed on Siemens ADVIA Centaur XPT using chemiluminescent technology.??Values obtained by using different assay methods cannot be used interchangeably. us Provider Outr Resulting Lab CHEMISTRY & BLOOD GA S ORDERABLES Final Result [facility] [address] [place] [address] documented in this encounter Visit Diagnoses Not on filedocumented in this encounter
--- OUTSIDE RECORDS SUMMARY | 2024-09-22 12:16 | XMS_ITS | Continuity of Care Document ---
Author Organization [facility] Address [address] [place] [address] Care Team Providers Care Locum Tenens Name Role Phone NIKOLAS BUENROSTRO APRN Primary Care Physician Encounter [facility] NBR [id number] Date(s): 07/25/23 - 07/25/[address] [address]- [place] Discharge Disposition: Home or Self Care Attending Physician: Shon Ramos MD Admitting Physician: Shon Ramos MD Referring Physician: Shon Ramos MD Allergies, Adverse Reactions, Alerts No Known Medication Allergies Assessment and Plan Future Appointments Future Scheduled Tests Radiology* MRI Spine Lumbar w/o Contrast 07/28/23 * MRI Spine Thoracic w/ + w/o Contrast 07/28/23 Medications ocrelizumab 300 mg/10 mL intravenous solution 600 mg =, IV Piggyback, every 6 mo, 0 Refill(s) Start Date: 08/28/22 Status: Ordered Problem List Condition Confirmation Course Effective Dates Status H [facility] Status Informant Unspecified abnormal finding [...] Active Restless legs syndrome Confirmed [facility] Active Results Radiology Reports * Exam Date Time Procedure Performing Provider Status 07/25/23 9:31 AM MRI Brain w/ + w/o Contrast Connie Greene; Auth (Verified) Notes: (MRI Brain w/ + w/o Contrast) Reason For Exam: ms MRI Brain w/ + w/o Contrast PROCEDURE INFORMATION: Exam: MR Head Without and With Contrast Exam date and time: 07/25/2023 9:13 AM Age: 48 years old Clinical indication: Multiple sclerosis; Disease of spinal cord, unspecified; Intervertebral disc disorders with radiculopathy, lumbar region; Abnormal reflex; Additional info: MS TECHNIQUE: Imaging protocol: Sagittal T1. Coronal T2. Axial T1, T2, mFFE gradient echo, and diffusion-weighted. 3D T2 FLAIR MPR and T1 post gadolinium in all 3 orthogonal planes. Contrast material: MULTIHANCE; Contrast volume: 20 ml; Contrast route: INTRAVENOUS (IV) COMPARISON: Brain MRI dated 11/13/2018. FINDINGS: The pattern of patchy bilateral frontal and parietal periventricular and cerebral subcortical white matter FLAIR and T2 hyperintensities is not significantly changed, with some of these signal abnormalities again extending perpendicularly from the lateral ventricular margins, compatible with the provided history of multiple sclerosis. No abnormal intracranial enhancement, and no other abnormal foci of altered signal intensity within the remaining cerebral or cerebellar parenchyma. No restricted diffusion; no acute infarct. The ventricles and sulci are unremarkable for age without midline shift or hydrocephalus. No abnormal extraaxial fluid collection. No intracranial hemorrhage or mass. Normal flow voids, caliber, and enhancement of central intracranial vessels. No cerebellar tonsillar herniation. There is mild right sphenoid and bilateral ethmoid sinus mucosal thickening, but the paranasal sinuses are otherwise essentially clear. The nasopharynx, orbits, mastoid air cells, skull, and scalp are unremarkable. IMPRESSION: --The pattern of patchy bilateral frontal and parietal periventricular and cerebral subcortical white matter FLAIR and T2 hyperintensities is not significantly changed, compatible with the provided history of multiple sclerosis. --No new or enhancing lesion to suggest active demyelinating disease. THIS DOCUMENT HAS BEEN ELECTRONICALLY SIGNED BY REESE RUIZ MD on 07/26/2023 04:41 AM Final Signed by: DomainUserElma Signed (Electronic Signature): 07/26/2023 4:41 am * Exam Date Time Procedure Performing Provider Status 07/25/23 9:41 AM MRI Spine Cervical w / + w/o Contrast Connie Greene; Auth (Verified) Notes: (MRI Spine Cervical w/ + w/o Contrast) Reason For Exam: ms , cervical myelopathy MRI Spine Cervical w/ + w/o Contrast PROCEDURE INFORMATION: Exam: MR Cervical Spine Without and With Contrast Exam date and time: 07/25/2023 8:04 AM Age: 48 years old Clinical indication: Multiple sclerosis; Disease of spinal cord, unspecified; Intervertebral disc disorders with radiculopathy, lumbar region; Abnormal reflex; Additional info: Ms , cervical myelopathy TECHNIQUE: Imaging protocol: Magnetic resonance imaging of the cervical spine without and with contrast. Contrast material: MULTIHANCE; Contrast volume: 20 ml; Contrast route: INTRAVENOUS (IV); COMPARISON: CR XR DORSAL SPINE 11/13/2018 8:54 AM FINDINGS: Limitations: Some images are degraded by motion. Bones/joints: Minimal grade 1 retrolisthesis of C3 over C4. Otherwise unremarkable stature, signal and alignment. Spinal cord: Multifocal regions of nonenhancing intramedullary low T1 high T2 signal in the anterior medulla, cervical spinal cord at the C2-C3, C3-C4 and C6 through C7 vertebral body levels. No myelomalacia. C2-C3: No significant disc bulge or herniation. No severe spinal canal stenosis. No significant neural foraminal narrowing. C3-C4: Mild disc desiccation and posterior annular bulging without stenosis or neural impingement. C4-C5: No significant disc bulge or herniation. No severe spinal canal stenosis. No significant neural foraminal narrowing. C5-C6: No significant disc bulge or herniation. No severe spinal canal stenosis. No significant neural foraminal narrowing. C6-C7: Mild posterior annular bulging with posterior annular fissure.No posterior disc herniation, stenosis, or neural impingement. C7-T1: Mild disc desiccation. Mild posterior annular bulging. No stenosis or neural impingement. T2-T3: Mild disc desiccation and posterior annular bulging without stenosis or neural impingement. T3-T4: Mild disc desiccation. Mild posterior annular bulging. No posterior disc herniation, stenosis, or neural impingement. Soft tissues: Unremarkable. Paranasal sinuses: Mucosal thickening in the sphenoid sinus and bilateral maxillary antra incompletely included on image. Vasculature: Expected flow voids in the vertebral arteries. IMPRESSION: 1. Multifocal regions of demyelination in the brainstem and spinal cord as noted. No enhancing lesions to suggest active demyelination identified. 2. Degenerative disc disease as noted.No posterior disc herniation, stenosis, or neural impingement. 3. Additional findings /limitations as noted. THIS DOCUMENT HAS BEEN ELECTRONICALLY SIGNED BY KIEL RODRÍGUEZ MD on 07/26/2023 10:22 AM Final Signed by: Kiel Rodríguez MD Signed (Electronic Signature): 07/26/2023 10:22 am Social History Social History Type Response Tobacco Never tobacco user T obacco Use:. Sex Patient Care team information Care Team Personnel Name: NIKOLAS BUENROSTRO APRN Position: No Access Member Role: Primary Care Physician Address: Address: [address] [address]- [place]
--- OUTSIDE RECORDS SUMMARY | 2024-09-22 12:16 | XMS_ITS | Encounter Summary ---
[place] [address] Care Team Providers Care Scratch Finisher Name Role Phone Luis Armando Wisdom MD Primary Care Provider [phone] Encounter Details Date Type Department Care Team (Late st Contact Info) Description 12/10/2010 9:45 AM EST Office Visit [place] [address] Sandie Hogan MD [facility] [address] [place] [address] Discharge Disposition: Home Social History Tobacco Use [...] on filedocumented in this encounter Care Teams Scratch Finisher Relationship Specialty Start Date End Date Luis Armando Wisdom MD [facility] [address] [place] [address] PCP - General 09/04/10 10/12/18 documented as of this encounter
--- OUTSIDE RECORDS SUMMARY | 2024-09-22 12:16 | XMS_ITS | Encounter Summary ---
Author Organization [facility] [place] [address] Care Team Providers Care Automobile Engine Assembler Name Role Phone Ashley Stringer APRN Primary Care Provider Encounter Details Date Type Department Care Team ([facility] st Contact Info) Description 07/28/2023 Ancillary Procedure Radiology Library at [facility] [place] [address] Ashley Stringer APRN [address] [place] [address] Social History Tobacco Use Types Packs/Day Years Used Date Smoking Tobacco: Never Smokeless Tobacco: Former Alcohol Use Standard Drinks/Week Comments Not Currently 0 (1 standard drink = 0.6 oz pur e alcohol) Sex and Gender Information Value Date Recorded Sex Assigned at Not on file Gender Identity Not on file Sexual Orientation Not on file documented as of this encounter Plan of Treatment Not on file documented as of this encounter Procedures Procedure Name Priority Date/Time Associated Diagnosis Comments FILM LIBRARY STORAGE ONLY MR SPINE Routine 07/28/2023 12:00 AM EDT documented in this encounter Results * Film Library- Storage Only MR Spine (07/28/2023 12:00 AM EDT) Narrative [facility] - 07/29/2023 10:39 AM EDT This exam is auto-finalizing. It's purpose is for storage only. Ashley Stringer APRN IMG FILM LIBRARY ORD ERABLES [facility] [place], [place] documented in this encounter Visit Diagnoses Not on filedocumented in this encounter Care Teams Automobile Engine Assembler Relationship Specialty Start Date End Date Ashley Stringer, DINESH [address] [place] [address] PCP - General Family Medicine 08/22/22 documented as of this encounter
--- OUTSIDE RECORDS SUMMARY | 2024-09-22 12:16 | XMS_ITS | Clinical Summary ---
Author Organization [facility] [place] [address] Care Team Providers Care Institution Librarian Name Role Phone Ashley Stringer APRN Primary Care Provider [phone] Allergies No known active allergies Medications Medication Sig Dispensed Refills Start Date End Date Status ascorbic acid, Vitamin C, (Vitamin C) 500 mg Tablet Take 500 mg by mouth daily. Active multivitamin (THERAGRAN) Tablet Take 1 tablet by mouth daily. Active methylphenidate (METADATE ER) 10 mg Tablet Sustained Release 28 EA, take 1 tablet by mouth once daily, 0 Refill(s) 08/28/2022 Active ocrelizumab (Ocrevus) 30 mg/mL Solution 600 mg. 08/28/2022 Active Social History Tobacco Use Types Packs/Day Years Used Date Smoking Tobacco: Never Smokeless Tobacco: Former Alcohol Use Standard Drinks/Week Comments Not Currently 0 (1 standard drink = 0.6 oz pur e alcohol) Sex and Gender Information Value Date Recorded Sex Assigned at Not on file Gender Identity Not on file Sexual Orientation Not on file Last Filed Vital Signs Vital Sign Reading Time Taken Comments Blood Pressure 127/75 11/22/2022 4:42 PM EST Pulse 56 11/22/2022 4:42 PM EST Temperature - - Respiratory Rate - - Oxygen Saturation - - Inhaled Oxygen Concentration - - Weight 110 kg (242 lb 8 oz) 11/22/2022 4:[address] Height 185.4 cm (6' 1) 11/22/2022 4:42 PM EST Body Mass Index 31.99 11/22/2022 4:42 PM EST Plan of Treatment Health Maintenance Due Date Last Done Comments CT Colonography 1977 Colonoscopy 1977 Colorectal Cancer Screening 1977 FIT DNA 1977 FIT 1977 Sigmoidoscopy (10 year) with FIT yearly 1977 Sigmoidoscopy 1977 HIV screen 1995 Hepatitis C Screening 1995 Lipid Screening 1995 Hepatitis B vaccine (0-59 yrs) (1) 02/21/1996 Tetanus/Diphtheria/Pertussis Vaccines (1 - Tdap) 02/20 Diabetes Screening (HgbA1C or Glucose) 2017 Covid-19 Vaccine ( - 2023- season) 2024 Influenza (Flu) vaccine (1 o f 1 - Influenza standard series) 06/13/2024 Procedures Procedure Name Priority Date/Time Associated Diagnosis Comments GLUCOSE Routine 08/01/2010 3:08 PM EDT from Last 3 Months or Most Recently Relevant to Health Maintenance Results * GLUCOSE, RANDOM (08/01/2010 3:08 PM EDT) Glucose 107 <=199 mg/dL [facility] Comment:Diabetes: >=200 mg/d L plus symptoms Blood specimen (specimen) 08/01/2010 3:08 PM EDT 08/01/2010 3:19 PM EDT Destiny Palacio DO CHEMISTRY ORDERABLES [facility] from Last 3 Months or Most Recently Relevant to Health Maintenance Care Teams Institution Librarian Relationship Specialty Start Date End Date Ashley Stringer APRN [facility] [place] [address] PCP - General Family Medicine 08/22/22
--- OUTSIDE RECORDS SUMMARY | 2024-09-22 12:16 | XMS_ITS | Encounter Summary ---
Author Organization [facility] Address [address] [place] [address] Care Team Providers Care Level Vial Grinder Name Role Phone Unavailable Primary Care Provider Unavailabl e Encounter Details Date Type Department Care Team (Late st Contact Info) Description 03/24/2024 Lab Requisition [facility] Pathology & Laboratory Medicine - [address] [address] Outr Resulting Lab, Provider Social History Tobacco [...] Associated Diagnosis Comments PSA TOTAL, DIAGNOSTIC Routine 03/24/2024 10:00 EDT documented in this encounter Results * PSA TOTAL, DIAGNOSTIC (03/24/2024 10:00 EDT) PSA 0.4 <=2.5 ng/mL 03/24/2024 22:28 EDT [facility] Blood VENOUS BLOOD / Unknown 03/24/2024 10:00 EDT 03/24/2024 21:17 EDT Narrative [facility] - 03/24/2024 22:28 EDT NOTE: Serum PSA concentration should not be interpreted as absolute evidence for the presence or absence of malignant disease. Assayed on Siemens ADVIA Centaur XPT using chemiluminescent technology.??Values obtained by using different assay methods cannot be used interchangeably. us Provider Outr Resulting Lab CHEMISTRY & BLOOD GA S ORDERABLES Final Result [facility] [address] [place] [address] documented in this encounter Visit Diagnoses Not on filedocumented in this encounter
--- OUTSIDE RECORDS SUMMARY | 2024-09-22 12:16 | XMS_ITS | Encounter Summary ---
Author Organization [facility] [place] [address] Care Team Providers Care Supplier Quality Specialist Name Role Phone Luis Armando Wisdom MD Primary Care Provider [phone] Encounter Details Date Type Department Care Team (Late st Contact Info) Description 08/01/2010 [place] [id number] Jace Smith MD [facility] [place] [address] Social History Tobacco Use Types Packs/Day Years Used Date Smoking Tobacco: Never Assessed Sex and Gender Information Value Date Recorded Sex Assigned at Not on file Gender Identity Not on file Sexual Orientation Not on file documented as of this encounter Plan of Treatment Not on file documented as of this encounter Procedures Procedure Name Priority Date/Time Associated Diagnosis Comments CSF CELL COUNT Routine 08/01/2010 2:37 PM EDT CSF DESC 4 Routine 08/01/2010 2:37 PM EDT CSF DESC 3 Routine 08/01/2010 2:37 PM EDT CSF DESC 2 Routine 08/01/2010 2:37 PM EDT CSF DESC 1 Routine 08/01/2010 2:37 PM EDT OLIGOCLONAL BANDING CSF Routine 08/01/2010 2:37 PM EDT IGG INDEX CSF Routine 08/01/2010 2:37 PM EDT PROTEIN LEVEL CSF Routine 08/01/2010 2:3 7 PM EDT MYELIN BASIC PROTEIN, CSF Routine 08/01/2010 2:37 PM EDT GLUCOSE LEVEL CSF Routine 08/01/2010 2:3 7 PM EDT documented in this encounter Results * MYELIN BASIC PROTEIN, CSF (08/01/2010 2:37 PM EDT) MBP CSF 0.57 0.00 - 1.10 ng/mL [facility] Comment: Test Information: ??Myelin Basic Protein This test uses a kit designated by the manufacturing technician as for research use, not for clinical use. The performance characteristics of this test were validated by [facility] ([employer]). The U.S. Food and Drug Administration (FDA) has not approved this test. The results are not intended to be used as the sole means for clinical diagnosis or patient management decisions. [facility] is authorized under the Clinical Laboratory Improvement Amendments (CLIA) and by all states to perform high-complexity testing. Test Performed by: [employer] ([employer]). ? [address] ? [place] [address] Cerebrospinal fluid specimen (specimen) 08/01/2010 2:37 PM EDT 08/01/2010 3:53 PM EDT Jace Smith MD BODY FLUIDS AND TESSA LEBRON ORDERABLES [facility] * OLIGOCLONAL BANDING (08/01/2010 2:37 PM EDT) Oligo Bands Csf (MAY) ?HI ? Expected Test ?Result ??LO ??Units ?Values --------- Oligoclonal Banding ??CSF Bands ? 11 ?bands ??Serum Bands ? 0 ? bands ??CSF Olig Bands ?11 ?H ?? bands ?<4 ?Interpretation The oligoclonal band assay detected 4 or more IgG bands in the CSF that are not detected in the serum. This is a Positive result. CSF is used in the diagnosis of MS by identifying increased intrathecal IgG synthesis qualitatively (Oligoclonal Bands) or quantitatively (IgG index or IgG synthesis rate, CSF). Oligoclonal bands (4 or more CSF-specific bands) and/or an elevated CSF IgG index are detected in up to 90% of patients with MS. These findings, however, are not specific for MS as CSF-specific IgG synthesis may also be found in patients with other neurologic diseases including infectious, inflammatory, cerebrovascular, and paraneoplastic disorders. Test Performed by: [facility] D[facility] Med and Pathology [address] [place] [address] Rental Sales Representative: Eduardo June III, M.D. CASSIDY BROWNELLA Hernadez Review 08/01/2010 2:37 PM EDT 08/01/2010 4:59 PM EDT Jace Smith MD LAB SEND OUT ORDERAB LES CASSIDY WARE * CSF IGG INDEX (08/01/2010 2:37 PM EDT) IgG Index, CSF (MAY) ?HI ? Expected Test ?Result ??LO ??Units ?Values -------- Cerebrospinal Fl, CSF, IgG Index ??IgG Index, CSF ?1.19 ?H ?<=0.85 ??IgG, CSF ?6.89 ?mg/dL ?<=8.1 ??Albumin, CSF ?20.60 ? mg/dL ?<=27.0 ??IgG/Albumin , CSF ?0.33 ?H ?<=0.21 ??Synthesis Rate, CSF ? 19.72 ?? H ?? mg/24 h ??<=12 ??IgG, S ?1170 ?mg/dL ?017-1590 ??Albumin, S ?4160 ?mg/dL ?8916-6743 ??IgG/Albumin , S ?0.3 ?<=0.4 Test Performed by: [facility] D[facility] of Lab Med and Pathology [address] [place] [address] Rental Sales Representative: Eduardo June III, M.D. CERNER MILLENNIUM Hernadez Review 08/01/2010 2:37 PM EDT 08/01/2010 4:59 PM EDT Jace Smith MD LAB SEND OUT ORDERAB LES Performing Organization Address City/State/[facility] Co de Phone Number CERNER MILLENNIUM * PROTEIN, CSF (08/01/2010 2:37 PM EDT) Protein, CSF 36 15 - 45 mg/dL CERNER MILLENNIUM Xanthochromia Neg CERNER MILLENNIUM Cerebrospinal fluid specimen (specimen) 08/01/2010 2:37 PM EDT 08/01/2010 2:37 PM EDT Jace Smith MD BODY FLUIDS AND STOO LS ORDERABLES Performing Organization Address [facility] de Phone Number CERNER MILLENNIUM * GLUCOSE, CSF (08/01/2010 2:37 PM EDT) Glucose, CSF 67 mg/dL CERNER MILLENNIUM Comment:CSF at equilibrium e quals approximately 60-80% of plasma glucose. Cerebrospinal fluid specimen (specimen) 08/01/2010 2:37 PM EDT 08/01/2010 2:37 PM EDT Jace Smith MD BODY FLUIDS AND STOO LS ORDERABLES Performing Organization Address [facility] Co de Phone Number CERNER MILLENNIUM * (ABNORMAL) REFLEX LAB-CSFCT (08/01/2010 2:37 PM EDT) Tube # counted 3 CERNE R MILLENNIUM Total Nucleated Cell Count, CSF 10(H) 0 - 5 /mcl CERNER MILLENNIUM RBC Count CSF 2 /mcl CERNER MILLENNIUM Lymphocyte, CSF 98 % CERN ER MILLENNIUM Macrophage CSF 2 % CERNE R MILLENNIUM Total Cells, CSF 200 Cells CERNER MILLENNIUM Cerebrospinal fluid specimen (specimen) 08/01/2010 2:37 PM EDT 08/01/2010 2:37 PM EDT Jace Smith MD BODY FLUIDS AND STOO LS ORDERABLES Performing Organization Address [facility] Co de Phone Number CERNER MILLENNIUM * REFLEX LAB-CSF DESC 4 (08/01/2010 2:37 PM EDT) Tube Num CSF 4 4 CERNE R MILLENNIUM Color, CSF 4 Colorless Colorless CERNER MILLENNIUM Appearance, CSF 4 Clear Clear CERNER MILLENNIUM Total Vol, CSF 4 3.2 mL CERNER MILLENNIUM Cerebrospinal fluid specimen (specimen) 08/01/2010 2:37 PM EDT 08/01/2010 2:37 PM EDT Jace Smith MD BODY FLUIDS AND STOO LS ORDERABLES Performing Organization Address [facility] de Phone Number CERNER MILLENNIUM * REFLEX LAB-CSF DESC 3 (08/01/2010 2:37 PM EDT) Tube Num CSF 3 3 CERNE R MILLENNIUM Color, CSF 3 Colorless Colorless CERNER MILLENNIUM Appearance, CSF 3 Clear Clear CERNER MILLENNIUM Total Vol, CSF 3 3.3 mL CERNER MILLENNIUM Cerebrospinal fluid specimen (specimen) 08/01/2010 2:37 PM EDT 08/01/2010 2:37 PM EDT Jace Smith MD BODY FLUIDS AND STOO LS ORDERABLES Performing Organization Address [facility] Co de Phone Number CERNER MILLENNIUM * REFLEX LAB-CSF DESC 2 (08/01/2010 2:37 PM EDT) Tube Num CSF #2 2 CERNER MILLENNIUM Color, CSF 2 Colorless Colorless CERNER MILLENNIUM Appearance, CSF 2 Clear Clear CERNER MILLENNIUM Total Vol, CSF 2 3.3 mL CERNER MILLENNIUM Cerebrospinal fluid specimen (specimen) 08/01/2010 2:37 PM EDT 08/01/2010 2:37 PM EDT Jace Smith MD BODY FLUIDS AND STOO LS ORDERABLES CASSIDY MILLENNIUM * REFLEX LAB-CSF DESC 1 (08/01/2010 2:37 PM EDT) Tube Num CSF #1 1 CERNER MILLENNIUM Color, CSF Colorless Colorless CERNER MILLENNIUM Appearance, CSF Clear Clear CERNER MILLENNIUM Total Vol, CSF 3.2 mL CERNE R MILLENNIUM Cerebrospinal fluid specimen (specimen) 08/01/2010 2:37 PM EDT 08/01/2010 2:37 PM EDT Jace Smith MD BODY FLUIDS AND STOO LS ORDERABLES Performing Organization Address City/[facility] Co de Phone Number CASSIDY PERESIUM documented in this encounter Visit Diagnoses Not on filedocumented in this encounter Care Teams Supplier Quality Specialist Relationship Specialty Start Date End Date Luis Armando Wisdom MD [facility] [address] [place] [address] PCP - General 09/04/10 10/12/18 documented as of this encounter
--- OUTSIDE RECORDS SUMMARY | 2024-09-22 12:16 | XMS_ITS | Encounter Summary ---
Author Organization [facility] [place] [address] Care Team Providers Care Molded Parts Inspector Name Role Phone Unknown Primary Care Provider Unavailabl e Encounter Details Date Type Department Care Team (Late st Contact Info) Description 11/13/2018 Ancillary Procedure Radiology Library at [facility] [place] [address] Jesse Young MD [facility] [place] [address] Social History Tobacco Use Types Packs/Day Years [...] FILM LIBRARY STORAGE ONLY MR HEAD Routine 11/13/2018 12:00 AM EST documented in this encounter Results * Film Library- Storage Only MR Head (11/13/2018 12:00 AM EST) Narrative ALEXANDER - 01/06/2019 1:12 AM EDT This exam is auto-finalizing. It's purpose is for storage only. Jesse Young MD IMG FILM LIBRARY [facility]D [facility] [place] documented in this encounter Visit Diagnoses Not on filedocumented in this encounter Care Teams Molded Parts Inspector Relationship Specialty Start Date End Date Unknown None PCP - General 10/13/18 12/30/18 documented as of this encounter
--- OUTSIDE RECORDS SUMMARY | 2024-09-22 12:16 | XMS_ITS | Encounter Summary ---
[place] [address] Care Team Providers Care Filter Filler Name Role Phone Ashley Stringer APRN Primary Care Provider [phone] Reason for Visit * Reason Comments Specialty Pharmacy Review Encounter Details Date Type Department Care Team (Late st Contact Info) Description 11/22/2022 Specialty [place] [address] López Borrero RPH Social History Tobacco Use Types Packs/Day Years Used Date Smoking Tobacco: Never Smokeless Tobacco: Former Alcohol Use Standard Drinks/Week Comments Not Currently 0 (1 standard drink = 0.6 oz pur e alcohol) Sex and Gender Information Value Date Recorded Sex Assigned at Not on file Gender Identity Not on file Sexual Orientation Not on file documented as of this encounter Progress Notes * López Borrero RPH - 11/22/2022 11:59 PM EST The [facility] has completed a benefits investigation for Donnell Welch to review their eligibility to fill at [facility]. Per patient's medication list they are prescribed dalfampridine and the medication is not able to be filled at the [facility]. documented in this encounter Plan of Treatment Not on file documented as of this encounter Visit Diagnoses Not on filedocumented in this encounter Care Teams Filter Filler Relationship Specialty Start Date End Date Ashley Stringer APRN [address] [place] [address] PCP - General Family Medicine 08/22/22 documented as of this encounter
--- OUTSIDE RECORDS SUMMARY | 2024-09-22 12:16 | XMS_ITS | Encounter Summary ---
[place] [address] Care Team Providers Care Humane Agent Name Role Phone Ashley Stringer APRN Primary Care Provider [phone] Reason for Referral * Consultation (Routine) - Closed Specialty Diagnoses / Procedures Referred By Larry romeo Referred To Contact Neurology Diagnoses Multiple sclerosis Ashley Stringer APRN [address] [facility] [address] [facility] Neurology [address] [place] [id number] Referral ID Status Reason Start Date Expiration Date V isits Requested Visits Authorized [id number] Closed Consult, Test & Treat PCP Updated and/or Approved 08/22/2022 08/22/2023 6 6 Encounter Details Date Type Department Care Team (Late st Contact Info) Description 08/22/2022 Transcribe Orders eDH Incoming Referrals [phone] Ashley Stringer APRN [address] [place] [address] Multiple sclerosis Social History Tobacco Use Types Packs/Day Years Used Date Smoking Tobacco: Never Smokeless Tobacco: Former Alcohol Use Standard Drinks/Week Comments Not Currently 0 (1 standard drink = 0.6 oz pur e alcohol) Sex and Gender Information Value Date Recorded Sex Assigned at Not on file Gender Identity Not on file Sexual Orientation Not on file documented as of this encounter Plan of Treatment Scheduled Referrals Name Type Priority Associated Diagnoses Orde r Schedule Referral to Neurology Outpatient Referral Routine Multiple sclerosis Ordered: 08/22/2022 documented as of this encounter Visit Diagnoses Diagnosis Multiple sclerosis documented in this encounter Care Teams Humane Agent Relationship Specialty Start Date End Date Ashley Stringer, LOT ATTENDANT [address] [place] [address] PCP - General Family Medicine 08/22/22 documented as of this encounter
--- OUTSIDE RECORDS SUMMARY | 2024-09-22 12:16 | XMS_ITS | Encounter Summary ---
[place] [address] Care Team Providers Care Cylinder Press Feeder Name Role Phone Ashley Stringer APRN Primary Care Provider [phone] Encounter Details Date Type Department Care Team (Latest Contact Info) Description 11/22/2022 Travel Social History Tobacco Use Types Packs/Day Years [...] on filedocumented in this encounter Care Teams Cylinder Press Feeder Relationship Specialty Start Date End Date Ashley Stringer, DINESH [place] [address] PCP - General Family Medicine 08/22/22 documented as of this encounter
--- OUTSIDE RECORDS SUMMARY | 2024-09-22 12:16 | XMS_ITS | Encounter Summary ---
Author Organization [facility] [place] [address] Care Team Providers Care Senior Wealth Advisor Name Role Phone Luis Armando Wisdom MD Primary Care Provider [phone] Encounter Details Date Type Department Care Team (Late st Contact Info) Description 01/13/2013 Ancillary Procedure Radiology Library at [facility] [place] [address] Jesse Young MD [facility] [place] [address] Social History Tobacco Use Types Packs/Day Years [...] FILM LIBRARY STORAGE ONLY MR SPINE Routine 01/13/2013 12:00 AM EDT documented in this encounter Results * Film Library- Storage Only MR Spine (01/13/2013 12:00 AM EDT) Narrative ALEXANDER - 01/06/2019 12:56 AM EDT This exam is auto-finalizing. It's purpose is for storage only. Jesse Young MD IMG FILM LIBRARY ORD ERABLES [place], [place] documented in this encounter Visit Diagnoses Not on filedocumented in this encounter Care Teams Senior Wealth Advisor Relationship Specialty Start Date End Date Luis Armando Wisdom MD [facility] [address] [id number] PCP - General 09/04/10 10/12/18 documented as of this encounter
--- OUTSIDE RECORDS SUMMARY | 2024-09-22 12:16 | XMS_ITS | Continuity of Care Document ---
Author Organization [facility] Address [address] [place] [address] Care Team Providers Care Balance Assembler Name Role Phone NIKOLAS BUENROSTRO APRN Primary Care Physician [phone] [id number] Date(s): 07/07/23 - 07/07/23 [facility] [address] [place] [address]- Discharge Disposition: Home Allergies, Adverse Reactions, Alerts [...] Member Role: Primary Care Physician Address: Address: [address] [facility] [address]
--- OUTSIDE RECORDS SUMMARY | 2024-09-22 12:16 | XMS_ITS | Encounter Summary ---
Author Organization [facility] Address [address] [place] [address] Care Team Providers Care Core Sticker Name Role Phone Unavailable Primary Care Provider Unavailabl e Encounter Details Date Type Department Care Team (Late st Contact Info) Description 07/07/2024 Lab Requisition [facility] Pathology & Laboratory Medicine - [facility] [address] [place], [place] [address] Outr Resulting Lab, Provider Social History Tobacco [...] Diagnosis Comments IMMUNOGLOBULINS Routine 07/07/2024 10:14 EDT documented in this encounter Results * (ABNORMAL) IMMUNOGLOBULINS (07/07/2024 10:14 EDT) IgG 925 610 - 1,616 mg/dL 07/08/2024 8:34 EDT [facility] IgA 202 85 - 499 mg/dL 07/08/2024 8:34 EDT [facility] IgM 30(L) 35 - 242 mg/dL 07/08/2024 8:34 EDT [facility] Blood VENOUS BLOOD / Unknown 07/07/2024 10:14 EDT 07/07/2024 17:51 EDT us Provider Outr Resulting Lab CHEMISTRY & BLOOD GA S ORDERABLES Final Result [facility] [address] [place] [address] documented in this encounter Visit Diagnoses Not on filedocumented in this encounter
--- OUTSIDE RECORDS SUMMARY | 2024-09-22 12:16 | XMS_ITS | Encounter Summary ---
Author Organization [place] [address] Care Team Providers Care Admissions Coordinator Name Role Phone Luis Armando Wisdom MD Primary Care Provider [phone] Encounter Details Date Type Department Care Team (Latest Contact Info) Description 12/15/2010 8:24 AM EST - 12/15/2010 11:59 PM [facility] [place] [address] CLINIC, Lb Ulloa MD [facility] [place] [address] Discharge Disposition: Home Social History Tobacco Use Types Packs/Day Years Used Date Smoking Tobacco: Never Assessed Sex and Gender Information Value Date Recorded Sex Assigned at Not on file Gender Identity Not on file Sexual Orientation Not on file documented as of this encounter Medications at Time of Discharge Medication Sig Dispensed Refills Start Date End Date GLUCOSAMINE HCL/CHONDRO FRIEDMAN A (GLUCOSAMINE-CHONDROITIN ORAL) 12/10/2010 01/18/2019 THIAMINE HCL (VITAMIN B-1 ORAL) 01/18/2019 documented as of this encounter Plan of Treatment Not on file documented as of this encounter Visit Diagnoses Not on filedocumented in this encounter Care Teams Admissions Coordinator Relationship Specialty Start Date End Date Luis Armando Wisdom MD [address] [address] PCP - General 09/04/10 10/12/18 documented as of this encounter
--- OUTSIDE RECORDS SUMMARY | 2024-09-22 12:16 | XMS_ITS | Encounter Summary ---
[place] [address] Care Team Providers Care Heel Wheeler Name Role Phone Luis Armando Wisdom MD Primary Care Provider [phone] Reason for Visit * Reason Onset Date Comments Other 01/22/2011 Appt with Neida pino Encounter Details Date Type Department Care Team (Late st Contact Info) Description 01/22/2011 [place] [phone] Destiny Palacio [facility] [place] [address] Other (Appt with Li) Social History Tobacco Use Types Packs/Day Years Used Date Smoking Tobacco: Never Assessed Sex and Gender Information Value Date Recorded Sex Assigned at Not on file Gender Identity Not on file Sexual Orientation Not on file documented as of this encounter Miscellaneous Notes * Telephone Encounter - Mariel Real - 01/22/2011 9:48 AM EDT called and they are wondering about the appointment with Li. is at [phone] and ask for Pharmacy. Until then she is at the cell number listed. documented in this encounter Plan of Treatment Not on file documented as of this encounter Visit Diagnoses Not on filedocumented in this encounter Care Teams Heel Wheeler Relationship Specialty Start Date End Date Luis Armando Wisdom MD [facility] [address] [place] [address] PCP - General 09/04/10 10/12/18 documented as of this encounter
--- OUTSIDE RECORDS SUMMARY | 2024-09-22 12:16 | XMS_ITS | Clinical Summary ---
Author Organization [facility] Address [address] [place] [address] Care Team Providers Care Radar Signal Processing Engineer Name Role Phone Unavailable Primary Care Provider Unavailabl e Encounters Date Type Department Care Team Description 07/07/2024 Lab Requisition [facility] Pathology & Laboratory Medicine - [facility] [address] [place] [address] Outr Resulting Lab, Provider from Last 3 Months Social History Tobacco Use Types Packs/Day Years Used Date Smoking Tobacco: Never Assessed Sex and Gender Information Value Date Recorded Sex Assigned at Not on file Legal Sex Male 18:15 EST Gender Identity Not on file Sexual Orientation Not on file Plan of Treatment Health Maintenance Due Date Last Done Comments Hepatitis C Screen 1977 Hepatitis B Vaccine (1 of 3 - 19+ 3-dose series) 02/20 COVID-19 Vaccine ( season) 2024 Procedures Procedure Name Priority Date/Time Associated Diagnosis Comments IMMUNOGLOBULINS Routine 07/07/2024 10:14 EDT from Last 3 Months Results * (ABNORMAL) IMMUNOGLOBULINS (07/07/2024 10:14 EDT) IgG 925 610 - 1,616 mg/dL 07/08/2024 8:34 EDT [facility] IgA 202 85 - 499 mg/dL 07/08/2024 8:34 EDT [facility] IgM 30(L) 35 - 242 mg/dL 07/08/2024 8:34 EDT [facility] Blood VENOUS BLOOD / Unknown 07/07/2024 10:14 EDT 07/07/2024 17:51 EDT us Provider Outr Resulting Lab CHEMISTRY & BLOOD GA S ORDERABLES Final Result [facility] [address] [place] [address] from Last 3 Months
--- OUTSIDE RECORDS SUMMARY | 2024-09-22 12:16 | XMS_ITS | Encounter Summary ---
Author Organization [facility] [place] [address] Care Team Providers Care Pull Over Machine Operator Name Role Phone Luis Armando Wisdom MD Primary Care Provider [phone] Encounter Details Date Type Department Care Team (Late st Contact Info) Description 01/13/2013 12:05 AM EDT Ancillary Procedure Radiology Library at [facility] [place] [id number] Jesse Young MD [facility] [place] [address] Social History Tobacco Use Types Packs/Day Years [...] LIBRARY STORAGE ONLY MR SPINE Routine 01/13/2013 12:05 AM EDT documented in this encounter Results * Film Library- Storage Only MR Spine (01/13/2013 12:05 AM EDT) Narrative ALEXANDER - 01/06/2019 12:57 AM EDT This exam is auto-finalizing. It's purpose is for storage only. Jesse Young MD IMG FILM LIBRARY ORD ERABLES [facility] [place], [place] documented in this encounter Visit Diagnoses Not on filedocumented in this encounter Care Teams Pull Over Machine Operator Relationship Specialty Start Date End Date Luis Armando Wisdom MD [facility] [address] [place] [address] PCP - General 09/04/10 10/12/18 documented as of this encounter
--- OUTSIDE RECORDS SUMMARY | 2024-09-22 12:16 | XMS_ITS | Encounter Summary ---
Author Organization [facility] [place] [address] Care Team Providers Care Bulk Receiver Name Role Phone Unknown Primary Care Provider Unavailabl e Encounter Details Date Type Department Care Team (Late st Contact Info) Description 11/13/2018 12:05 AM EST Ancillary Procedure Radiology Library at [place] [address] Jesse Young MD [facility] [place] [address] Social History Tobacco Use Types Packs/Day Years [...] FILM LIBRARY STORAGE ONLY MR SPINE Routine 11/13/2018 12:05 AM EST documented in this encounter Results * Film Library- Storage Only MR Spine (11/13/2018 12:05 AM EST) Narrative ALEXANDER - 01/06/2019 1:13 AM EDT This exam is auto-finalizing. It's purpose is for storage only. Jesse Young MD IMG FILM LIBRARY ORD ERABLES [place], [place] documented in this encounter Visit Diagnoses Not on filedocumented in this encounter Care Teams Bulk Receiver Relationship Specialty Start Date End Date Unknown None PCP - General 10/13/18 12/30/18 documented as of this encounter
--- OUTSIDE RECORDS SUMMARY | 2024-09-22 12:16 | XMS_ITS | Encounter Summary ---
Author Organization [facility] [place] [address] Care Team Providers Care Quartz Miner Name Role Phone Ashley Stringer APRN Primary Care Provider Encounter Details Date Type Department Care Team ([facility] st Contact Info) Description 07/25/2023 Ancillary Procedure Radiology Library at [facility] [place] [address] Ashley Stringer APRN [address] [place] [address] Social History Tobacco Use Types Packs/Day Years [...] Comments FILM LIBRARY STORAGE ONLY MR HEAD AND SPINE Routine 07/25/2023 12:00 AM EDT documented in this encounter Results * Film Library- Storage Only MR Head and Spine (07/25/2023 12:00 AM EDT) Narrative [facility] - 07/29/2023 10:39 AM EDT This exam is auto-finalizing. It's purpose is for storage only. Ashley ROSENTHALPrema FILM LIBRARY ORD ERABLES [place], [place] documented in this encounter Visit Diagnoses Not on filedocumented in this encounter Care Teams Quartz Miner Relationship Specialty Start Date End Date Ashley Stringer APRN [address] [place] [address] PCP - General Family Medicine 08/22/22 documented as of this encounter
--- OUTSIDE RECORDS SUMMARY | 2024-09-22 12:16 | XMS_ITS | Encounter Summary ---
[place] [address] Care Team Providers Care Vacuum Filter Operator Name Role Phone Rosa Tariq MD Primary Care Provider [phone] Reason for Visit * Consultation (Routine) - Specialty Diagnoses / Procedures Referred By Larry romeo Referred To Contact Neurology Diagnoses Shon Love MD [address] [place] [id number] [facility] Neurology [address] [place] [phone] Referral ID Status Reason Start Date Expiration Date V isits Requested Visits Authorized [id number] Consult, Test & Treat Connection Center PCP Updated and/or Approved 12/31/2018 12/31/2019 6 6 Encounter Details Date Type Department Care Team ([facility] st Contact Info) Description 01/18/2019 8:00 AM EDT [place] [address] Jesse Young MD [facility] [place] [address] Primary chronic progressive multiple sclerosis Social History Tobacco Use Types Packs/Day Years Used Date Smoking Tobacco: Never Smokeless Tobacco: Former Alcohol Use Standard Drinks/Week Comments Not Currently 0 (1 standard drink = 0.6 oz pur e alcohol) Sex and Gender Information Value Date Recorded Sex Assigned at Not on file Gender Identity Not on file Sexual Orientation Not on file documented as of this encounter Last Filed Vital Signs Vital Sign Reading Time Taken Comments Blood Pressure 136/85 01/18/2019 7:55 AM EDT Pulse 69 01/18/2019 7:55 AM EDT Temperature - - Respiratory Rate - - Oxygen Saturation - - Inhaled Oxygen Concentration - - Weight 114.3 kg (252 lb) 01/18/2019 7:55 AM EDT Height 185.4 cm (6' 1) 01/18/2019 7:55 AM EDT r eported Body Mass Index 33.25 01/18/2019 7:55 AM EDT documented in this encounter Progress Notes * Jesse Young MD - 01/18/2019 8:00 AM EDT [id number] 85 minutes Shon Ramos MD Dear , Thank you for asking the [facility] to consult on your patient, Donnell Welch. 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 Patient was unaccompanied. History was from the patient and from records from your office as well as his previous evaluations here at [facility]. HPI-History is that of a number of symptoms through the years which lead to an evaluation at [facility] in 2010 that was positive for white matter lesions in the brain and positive OCBs in the CSF. He has been followed through the years by you with the diagnosis of RIS. However, increasing symptoms and anew finding of ankle clonus prompted consideration of using MS medication, and that is the reason for the referral. He has also recently developed some band-like dysesthesias around T12 mostly on theright. He has not had major problems with bladder, bowel, erections, or ejaculations, but does notice increasing fatigue, some tremor, and bouncing his feet when he sits in a certain way.??Imaging of spinal cord has not demonstrated clear lesions; he tells me he has had recent imaging of brain, c-spine, and t-spine which have not demonstrated new lesions. ?? I also reviewed his workups at [facility]. He had visual symptoms and was seen by Drs. Childs, Zheng, and Edison. No clear diagnosis was given to him that I could see, although there was clearly strong suspicion for MS. Visual symptoms were limited to his right eye. He continues to have the sensation of decreased vision in his right eye especially when there is little light. SH- He lives in [place], [place] and has a very physical job. His son will be working at [facility] as an BOWL SANDER this summer and wants to be an RN H[employer]IS. On examination he was a pleasant man appearing his stated age. A formal mental status examination was not performed, since the patient's conversational content during the history was not consistent with a cognitive disorder. Cranial nerve examination revealed normal fundoscopic, extraocular movements. There was a hint of an APD OD. VA was 20/25 ou with a card. Visual lyman, facial movement and se nsation, hearing, tongue movement, palatal elevation, and neck strength were all normal. Muscle bulk, strength, and tone in the arms and legs were normal. Sensory examinaiton was grossly normal. I could not elicit a clear tremor on f to n. Deep tendon reflexes were 2-3+ and equal; DTRs may have been slightly more active on the left in arms and legs. His right toe was downgoing and his left was equivocal. There were 3 beats of ankle clonus on the right and 5 on the left. Heel walking, toe walking, and tandem gait were normal. The patient was able to stand with feet together, with eyes open or closed, although he felt more comfortable with his feet 4 apart. Hopping on either leg was normal. Imaging-as above. 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 His symptoms began 9 years ago. Withhis sensory symptom and his clonus one could assign his EDSS as 1.5-2.5 depending on how aggressively one scores, so his multiple sclerosis severity score (MSSS) would be between 1.7 and 3.4. 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 With lack of clear inflammation the response to a PPMS med, such as B cell depleters rituximab or ocrelizumab, would not be clearly helpful. However, he is young, and the change in his exam may indicate new inflammatory activity that we just can't identify by standard imaging. Thus, if one wished to treat, a trial of B cell depletion for 3 or 4 years to see if his disease stabilizes would not be unreasonable. I discussed my opinion with him at great length; he had good questions which I answered as best I could. Hope this is helpful. Please contact me if you have questions or concerns. And thank you for referring his very nice young man. I'd be happy to see him back at any time, but did not give him a formalf/u appointment. Sincerely, MD Andreas Zaragoza Professor of Neurology Department of Neurology [facility] [place] [address] At least 60 minutes of this 85 minute face to face visit were spent in discussion of the topics outlined in the note above including diagnosis, therapy, and management issues. documented in this encounter Plan of Treatment Not on file documented as of this encounter Visit Diagnoses Diagnosis Primary chronic progressive multiple sclerosis Multiple sclerosis documented in this encounter Care Teams Vacuum Filter Operator Relationship Specialty Start Date End Date Rosa Tariq MD [address] [place] [address] PCP - General Family Medicine 01/05/19 10/12/19 documented as of this encounter
--- OUTSIDE RECORDS SUMMARY | 2024-09-22 12:16 | XMS_ITS | Encounter Summary ---
[place] [address] Care Team Providers Care Filter Changing Technician Name Role Phone Luis Armando Wisdom MD Primary Care Provider [phone] Encounter Details Date Type Department Care Team (Late st Contact Info) Description 11/15/2010 9:30 AM EST [place] [address] Destiny Palacio, [facility] [place] [address] Social History Tobacco Use Types Packs/Day Years Used Date Smoking Tobacco: Never Assessed Sex and Gender Information Value Date Recorded Sex Assigned at Not on file Gender Identity Not on file Sexual Orientation Not on file documented as of this encounter Plan of Treatment Not on file documented as of this encounter Visit Diagnoses Not on filedocumented in this encounter Care Teams Filter Changing Technician Relationship Specialty Start Date End Date Luis Armando Wisdom MD [address] [address] PCP - General 09/04/10 10/12/18 documented as of this encounter
--- OUTSIDE RECORDS SUMMARY | 2024-09-22 12:16 | XMS_ITS | Encounter Summary ---
Author Organization [facility] [place] [address] Care Team Providers Care Defense Analyst Name Role Phone Luis Armando Wisdom MD Primary Care Provider [phone] Encounter Details Date Type Department Care Team (Late st Contact Info) Description 04/01/2016 Ancillary Procedure Radiology Library at [facility] [place] [id number] Jesse Young MD [facility] [place] [address] Social History Tobacco Use Types Packs/Day Years [...] STORAGE ONLY MR HEAD AND SPINE Routine 04/01/2016 12:00 AM EDT documented in this encounter Results * Film Library- Storage Only MR Head and Spine (04/01/2016 12:00 AM EDT) Narrative [facility] - 01/06/2019 1:00 AM EDT This exam is auto-finalizing. It's purpose is for storage only. Jesse Young MD IMG FILM LIBRARY ORD ERABLES [facility] [place] documented in this encounter Visit Diagnoses Not on filedocumented in this encounter Care Teams Defense Analyst Relationship Specialty Start Date End Date Luis Armando Wisdom MD [facility] [address] [place] [address] PCP - General 09/04/10 10/12/18 documented as of this encounter
--- OUTSIDE RECORDS SUMMARY | 2024-09-22 12:16 | XMS_ITS | Encounter Summary ---
[place] [address] Care Team Providers Care Admitted Attorneys Name Role Phone Ashley Stringer APRN Primary Care Provider [phone] Reason for Visit * Consultation (Routine) - Closed Specialty Diagnoses / Procedures Referred By Larry romeo Referred To Contact Neurology Diagnoses Multiple sclerosis Ashley Stringer APRN [address] [place] [address] [facility] [address] [place] [phone] Referral ID Status Reason Start Date Expiration Date V isits Requested Visits Authorized [id number] Closed Consult, Test & Treat PCP Updated and/or Approved 08/22/2022 08/22/2023 6 6 Encounter Details Date Type Department Care Team (Late st Contact Info) Description 11/22/2022 4:00 PM EST [place] [address] Jesse Young MD [facility] [place] [address] Relapsing remitting multiple sclerosis Social History Tobacco Use Types [...] Mass Index 31.99 11/22/2022 4:42 PM EST documented in this encounter Progress Notes * Jesse Young MD - 11/22/2022 4:00 PM EST [id number] 35 minutes Shon Ramos M.D. , I saw your patient, Donnell Welch, today for followup of his MS. You have been caring for him since I saw him last in January of 2019. Today there was a glitch in our office, which delayed his initial processing so I didn't see him until 40 minutes after his scheduled initial visit time. I apologized for this delay, and he and his accepted my apology. Fortunately, because I had seen him earlier, I knew his history, which can be found in my previous note. My impression, from speaking extensively to the patient and his , is that he has been fairly stable over the past 3+ years on Ocrevus. We discussed his initial dosing according to his CD19 counts, but his current dosing is q6 months. It seems that the issue that the couple most wanted to discuss was whether he should undergo stem cell therapy in [place]. I strongly recommended against this. Stem cell therapy of MS is at this pointin time a research procedure. We do not know the crucial details necessary to bring this promising approach to MS treatment: I.e. what type of stem cells, what immunosuppressive therapy is required, etc. Because of the mixup in the front office, he did not undergo usual processing: PRO, 25 ft timed walk, 9 hole peg test, or VS. I recommended he return in 6 months, and we can redo this testing to get an appreciation of whether he has significantly progressed since 01/2019, which will be over 4 years of f/u. I made sure that he will continue to follow with you also for his routine MS care. Sincerely, MD Andreas Zaragoza Professor of Neurology Department of Neurology [facility] [place] [address] At least 20 minutes of this 35 minute face to face visit were spent in discussion of the topics outlined in the note above including diagnosis, therapy, and management issues. documented in this encounter Plan of Treatment Not on file documented as of this encounter Visit Diagnoses Diagnosis Relapsing remitting multiple sclerosis Multiple sclerosis documented in this encounter Care Teams Admitted Attorneys Relationship Specialty Start Date End Date Ashley Stringer, METALLURGICAL OR MATERIALS TECHNICIAN [place] [place] [address] PCP - General Family Medicine 08/22/22 documented as of this encounter
--- OUTSIDE RECORDS SUMMARY | 2024-09-22 12:16 | XMS_ITS | Encounter Summary ---
Author Organization [facility] [place] [address] Care Team Providers Care Still Runner Name Role Phone Luis Armando Wisdom MD Primary Care Provider [phone] Encounter Details Date Type Department Care Team (Latest Contact Info) Description 12/10/2010 8:32 AM EST - 12/10/2010 11:[address] [facility] Hospital [place] [address] CLINIC, Lb Ulloa MD [facility] [place] [address] Discharge Disposition: Home Social History Tobacco Use [...] on filedocumented in this encounter Care Teams Still Runner Relationship Specialty Start Date End Date Luis Armando Wisdom MD [address] [address] PCP - General 09/04/10 10/12/18 documented as of this encounter
--- OUTSIDE RECORDS SUMMARY | 2024-09-22 12:16 | XMS_ITS | Continuity of Care Document ---
Author Organization [facility] Address [address] [place] [address] Care Team Providers Care Air Pollution Analyst Name Role Phone NIKOLAS BUENROSTRO APRN Primary Care Physician [phone] Encounter [facility] NBR [id number] Date(s): 01/08/24 - 01/08/[address] [address] [place] Encounter Diagnosis Multiple sclerosis(Final) - Discharge Disposition: Home or Self Care Attending Physician: Shon Ramos MD Admitting Physician: Shon Ramos MD Referring Physician: Shon Ramos MD Allergies, Adverse Reactions, Alerts No Known Medication Allergies Assessment and Plan Future Appointments Medications methylphenidate 20 mg/8 hr oral tablet, extended release 20 mg = 1 tab, Oral, Daily, 0 Refill(s) Start Date: 09/25/23 Status: Ordered ocrelizumab 300 mg/10 mL intravenous solution 600 mg =, IV Piggyback, every 6 mo, 0 Refill(s) Start Date: 08/28/22 Status: Ordered Problem List Condition Confirmation Course Effective Dates Status H [facility] Status Informant Unspecified abnormal finding in cerebrospinal [...] Temperature Temporal Artery [36-38 Deg C ] 36.1 Deg C (01/08/24 8:15 AM) Peripheral Pulse Rate [60-100 bpm] 50 bp m *LOW* (01/08/24 8:15 AM) Respiratory Rate [12-24 br/min] 16 br/mi n (01/08/24 8:15 AM) Blood Pressure [90-140/60-90 mmHg] 144/7 3mmHg *HI* (01/08/24 8:15 AM) Mean Arterial Pressure, Cuff [65-140 mmH g] 97 mmHg (01/08/24 8:15 AM) Social History Social History Type Response Tobacco Never tobacco user T obacco Use:. Sex Patient Care team information Care Team Personnel Name: NIKOLAS BUENROSTRO APRN Position: No Access Member Role: Primary Care Physician Address: Address: [id number] [place] [address] Care Team Related Persons Name: MIROSLAVA LEAVITT Address: Home [address] [place] [phone] [facility]
[2024-09-22 15:02] LABS: ALT 32 U/L (16-63); AST 22 U/L (15-37); Albumin 4.1 g/dL (3.4-5.0); Alkaline Phosphatase 56 U/L (46-116); Bilirubin, Direct 0.2 mg/dL (0.0-0.2); Bilirubin, Total 0.52 mg/dL (0.2-1.0); Total Protein 7.1 g/dL (6.4-8.2)
== END 2024-09-22 11:56 | disposition home or self-care (01) ==
LOC: NCHCN 11:55
PROVIDERS: PCP Family Medicine; Visit Provider Family Medicine
DX: G35 Multiple sclerosis (principal)
CPT/HCPCS: 80076

== ENCOUNTER 2025-07-06 18:31 | Outpatient (REF) | payer OTHER, SELFPAY ==
[2025-07-06 21:10] LABS: HCT 46.0 % (40.0-50.0); HGB 15.8 g/dL (13.5-17.5); MCH 31.5 pg (27.0-33.0); MCHC 34.3 % (32.0-36.0); MCV 92 fL (80-95); MPV 11.6 fL (8.0-11.0); Platelet Count 180 10^3/uL (130-400); RBC 5.01 10^6/uL (4.36-5.78); RDW 12.0 % (11.8-14.1); RDW-SD 40.5 fL; WBC 4.85 10^3/uL (4.4-10.8)
[2025-07-06 21:32] LABS: Hemoglobin A1C 4.8 % (<5.7)
[2025-07-06 21:43] LABS: TSH (W/Ref FT4) 0.97 uIU/mL (0.36-3.74)
[2025-07-07 18:33] LABS: PSA, Screening 0.3 ng/mL (<=2.5)
== END 2025-07-06 18:32 | disposition home or self-care (01) ==
LOC: NCHCN 18:31
PROVIDERS: PCP Family Medicine; Visit Provider Family Medicine
DX: Z80.42 Family history of malignant neoplasm of prostate (principal)
CPT/HCPCS: 84153; 85027; 83036; 84443